=== PATIENT | male | born 1940 | race Caucasian/White ===

== ENCOUNTER 2016-11-23 18:33 | Emergency (ER) | payer MEDICARE, OTHER ==
[~2016-11-23] VITALS: Ht 177.8 cm; Wt 93.0 kg
[~2016-11-23 18:33] MED LIST: AMIO200T2 PO; ASPI-482 PO; ATORVASTATIN CA80 MG PO; CARV12.52 PO; DICL100G18 TP; DONE10TA61 PO; DOXE10CA PO; FURO40TA4 PO; INSU100V13 SQ; LISI-334 PO; MELA1TAB6 PO; MELA3TAB2 PO; MEMA10TA PO; MEMA28CA PO; OMEP20CA9 PO; POTASSIUM CHLO10 MEQ PO; PREG75CA PO; RIVA10TA PO; RIVA15TA PO; SPIR25TA3 PO
--- NOTE | 2016-11-23 19:47 | PHYS DOC ---
Past Medical History Past Medical History: Dementia, High Cholesterol, Hypertension, Other Additional Past Medical Histor: MRSA Past Surgical History: Other Additional Past Surgical Histo: BACK,SHOULDER, PM Alcohol Use: None Drug Use: None Adult General Chief Complaint Chief Complaint: BLOOD SUGAR PROBLEM HPI HPI Patient is a 76 year old male who presents with generalized weakness. According to his he has a history of dementia and is been feeling weaker over the last couple days and sleeping a lot but she states he always sleeps a lot. She states his sugar has been up in the 3:15 today. He is on Humalog and Lantus. He denies any fevers chills nausea vomiting or abdominal pain. Review of Systems Review of Systems Constitutional: Denies fever or chills [] Eyes: Denies change in visual acuity, redness, or eye pain [] HENT: Denies nasal congestion or sore throat [] Respiratory: Denies cough or shortness of breath [] Cardiovascular: No additional information not addressed in HPI [] GI: Denies abdominal pain, nausea, vomiting, bloody stools or diarrhea [] : Denies dysuria or hematuria [] Musculoskeletal: Denies back pain or joint pain [] Integument: Denies rash or skin lesions [] Neurologic: Denies headache, focal weakness or sensory changes [] Endocrine: Denies polyuria or polydipsia [] Current Medications Current Medications Current Medications Medications (Trade) Dose Ordered Sig/[facility] Start Time Stop Time Status Last Admin Dose Admin Azithromycin (Zithromax) 500 mg 1X ONCE 11/23/16 23:00 11/23/16 23:01 Potassium Chloride (Klor-Con) 40 meq 1X ONCE 11/23/16 23:00 11/23/16 23:01 Allergies Allergies Allergies Coded Allergies Type Severity Reaction Last Updated Verified Sulfa (Sulfonamide Antibiotics) Allergy Intermediate 09/22/15 Yes morphine Allergy Intermediate 09/22/15 Yes Physical Exam Physical Exam Constitutional: Well developed, well nourished, no acute distress, non-toxic appearance. [] HENT: Normocephalic, atraumatic, bilateral external ears normal, oropharynx moist, no oral exudates, nose normal. [] Eyes: PERRLA, EOMI, conjunctiva normal, no discharge. [] Neck: Normal range of motion, no tenderness, supple, no stridor. [] Cardiovascular:Heart rate regular rhythm, no murmur [] Lungs & Thorax: Bilateral breath sounds clear to auscultation [] Abdomen: Bowel sounds normal, soft, no tenderness, no masses, no pulsatile masses. [] Skin: Warm, dry, no erythema, no rash. [] Back: No tenderness, no CVA tenderness. [] Extremities: No tenderness, no cyanosis, no clubbing, ROM intact, no edema. [] Neurologic: Alert and oriented X 3, normal motor function, normal sensory function, no focal deficits noted. [] Psychologic: Affect normal, judgement normal, mood normal. [] Current Patient Data Vital Signs Vital Signs Date Time Temp Pulse Resp B/P (MAP) Pulse Ox O2 Delivery O2 Flow Rate FiO2 11/23/16 22:30 52 18 153/80 (104) 94 Room Air 11/23/16 19:45 98.0 98.0 Lab Values Laboratory Tests Test 11/23/16 20:03 11/23/16 20:11 11/23/16 20:15 11/23/16 20:30 White Blood Count 7.4 x10^3/uL (4.0-11.0) Red Blood Count 4.32 x10^6/uL (4.30-5.70) Hemoglobin 12.9 g/dL (13.0-17.5) L Hematocrit 39.6 % (39.0-53.0) Mean Corpuscular Volume 92 fL (79-100) Mean Corpuscular Hemoglobin 30 pg (25-35) Mean Corpuscular Hemoglobin Concent 33 g/dL (31-37) Red Cell Distribution Width 14.5 % (11.5-14.5) Platelet Count 116 x10^3/uL (140-400) L Neutrophils (%) (Auto) 68 % (31-73) Lymphocytes (%) (Auto) 14 % (24-48) L Monocytes (%) (Auto) 13 % (0-9) H Eosinophils (%) (Auto) 4 % (0-3) H Basophils (%) (Auto) 2 % (0-3) Neutrophils # (Auto) 5.1 x10^3uL (1.8-7.7) Lymphocytes # (Auto) 1.0 x10^3/uL (1.0-4.8) Monocytes # (Auto) 1.0 x10^3/uL (0.0-1.1) Eosinophils # (Auto) 0.3 x10^3/uL (0.0-0.7) Basophils # (Auto) 0.1 x10^3/uL (0.0-0.2) Prothrombin Time 21.4 SEC (11.7-14.0) H Prothrombin Time INR 2.0 (0.8-1.1) H PTT 42 SEC (24-38) H Sodium Level 140 mmol/L (136-145) Potassium Level 3.3 mmol/L (3.5-5.1) L Chloride Level 102 mmol/L (98-107) Carbon Dioxide Level 29 mmol/L (21-32) Anion Gap 9 (6-14) Blood Urea Nitrogen 62 mg/dL (8-26) H Creatinine 2.3 mg/dL (0.7-1.3) H Estimated GFR (Cockcroft-Gault) 27.6 Glucose Level 212 mg/dL (70-99) H Calcium Level 9.1 mg/dL (8.5-10.1) Total Bilirubin 0.3 mg/dL (0.2-1.0) Direct Bilirubin 0.1 mg/dL (0.0-0.2) Aspartate Amino Transferase (AST) 69 U/L (15-37) H Alanine Aminotransferase (ALT) 104 U/L (16-63) H Alkaline Phosphatase 101 U/L (46-116) Ammonia 22 mcmol/L (11-34) Total Protein 7.2 g/dL (6.4-8.2) Albumin 3.4 g/dL (3.4-5.0) Influenza Type A Antigen Negative (NEGATIVE) Influenza Type B Antigen Negative (NEGATIVE) Lactic Acid Level 1.7 mmol/L (0.4-2.0) Urine Collection Type Unknown Urine Color Yellow Urine Clarity Cloudy Urine pH 5.5 Urine Specific [place] 1.020 Urine Protein Negative mg/dL (NEG-TRACE) Urine Glucose (UA) Negative mg/dL (NEG) Urine Ketones (Stick) Negative mg/dL (NEG) Urine Blood Negative (NEG) Urine Nitrite Negative (NEG) Urine Bilirubin Negative (NEG) Urine Urobilinogen Dipstick 0.2 mg/dL (0.2 mg/dL) Urine Leukocyte Esterase Trace (NEG) Urine RBC 0 /HPF (0-2) Urine WBC 0 /HPF (0-4) Urine Bacteria 0 /HPF (0-FEW) Urine Hyaline Casts Moderate /HPF Urine Mucus Slight /LPF Laboratory Tests 11/23/16 20:03 Laboratory Tests 11/23/16 20:03 EKG EKG EKG shows junctional rhythm rate of 55 beats per minute without any ST elevations or T-wave inversions, left axis deviation noted, QTC 470 ms, as interpreted by me. Radiology/Procedures Radiology/Procedures 1 View chest x-ray shows decreased sharpness of the left heart border, no pneumothorax, no bony abnormalities, ICD in place, as interpreted by me. Impressions: Weakness Hypokalemia Bronchitis Course & Med Decision Making Course & Med Decision Making Pertinent Labs and Imaging studies reviewed. (See chart for details) His chest x-ray does show some loss of the left cardiac border, his states he's been more sleepy than normal. We'll treat for bronchitis with doxycycline for the next 10 days. Return precautions given. He is agreeable to be discharged in stable condition at this time. Dragon Disclaimer Dragon Disclaimer This electronic medical record was generated, in whole or in part, using a voice recognition dictation system. Departure Departure Impression: Primary Impression: Hyperglycemia Disposition: 01 HOME, SELF-CARE Condition: STABLE Referrals: OTTONIEL STEARNS MD (PCP) Patient Instructions: Hyperglycemia, [id number] Additional Instructions: His chest x-ray shows an atypical type of infection in his lungs. He will need to take antibiotics for the next 10 days. The rest of his labs do not show any acute abnormalities. He should follow up with primary care physician. Return to ER if he has severe weakness, Scripts Doxycycline Monohydrate (DOXYCYCLINE MONOHYDRATE) 100 Mg Capsule 1 CAP PO BID, #20 CAP Prov: JINNY BROCK MD 11/23/16 JINNY BROCK MD Nov 23, 2016 19:47
[2016-11-23 20:12] LABS: BASO # 0.1 x10^3/uL (0.0-0.2); BASO % 2 % (0-3); EOS % 4 % (0-3); HEMATOCRIT 39.6 % (39.0-53.0); HEMOGLOBIN 12.9 g/dL (13.0-17.5); LYMPH % 14 % (24-48); MEAN CORPUSCULAR HEMOGLOBIN 30 pg (25-35); MEAN CORPUSCULAR HGB CONC 33 g/dL (31-37); MEAN CORPUSCULAR VOLUME 92 fL (79-100); MONO % 13 % (0-9); NEUT % 68 % (31-73); PLATELET COUNT 116 x10^3/uL (140-400); RED BLOOD COUNT 4.32 x10^6/uL (4.30-5.70); RED CELL DISTRIBUTION WIDTH 14.5 % (11.5-14.5); WHITE BLOOD COUNT 7.4 x10^3/uL (4.0-11.0)
[2016-11-23 20:22] LABS: PROTHROMBIN TIME PATIENT 21.4 SEC (11.7-14.0)
[2016-11-23 20:24] LABS: CALCIUM 9.1 mg/dL (8.5-10.1); CREATININE 2.3 mg/dL (0.7-1.3); GFR 27.6; POTASSIUM 3.3 mmol/L (3.5-5.1)
[2016-11-23 20:30] LABS: ALBUMIN 3.4 g/dL (3.4-5.0); DIRECT BILIRUBIN 0.1 mg/dL (0.0-0.2); TOTAL BILIRUBIN 0.3 mg/dL (0.2-1.0); TOTAL PROTEIN 7.2 g/dL (6.4-8.2)
[2016-11-23 20:47] LABS: BILIRUBIN,URINE NEGATIVE (NEG); GLUCOSE,URINE NEGATIVE (NEG); NITRITE,URINE NEGATIVE (NEG); PH,URINE 5.5; PROTEIN,URINE NEGATIVE (NEG-TRACE); UROBILINOGEN,URINE 0.2 mg/dL (0.2 mg/dL)
[2016-11-23 21:03] LABS: OBC FLU VALID
[2016-11-23 21:06] LABS: BACTERIA,URINE 0 /HPF (0-FEW); RBC,URINE 0 /HPF (0-2); WBC,URINE 0 /HPF (0-4)
[2016-11-23 22:30] VITALS: BP 153/80
[2016-11-23] MEDS ORDERED: AZIT1PAC9 PO (22:51)
[2016-11-23] MEDS ORDERED: AZITHROMYCIN 250 MG TABLET. PO ONE (23:00)
[2016-11-23] MEDS ORDERED: DOXYCYCLINE HYCLATE 100 MG TABLET PO ONE (23:00)
[2016-11-23] MEDS ORDERED: POTASSIUM CHLORIDE 20 MEQ TABLET.ER. PO ONE (23:00)
[2016-11-23] MEDS ORDERED: DOXY100C14 PO (23:01)
--- NOTE | 2016-11-24 08:21 | RAD ---
Portable chest, 11/23/2016: History: Weakness Comparison is made to a study from 08/19/2015. There has been a previous median sternotomy. A left-sided transvenous pacemaker remains in place with 2 leads extending into the right heart. The depth of inspiration is suboptimal. The heart size and pulmonary vascularity appear to be within normal limits. No pulmonary infiltrate is seen. There is no evidence of pleural fluid. IMPRESSION: 1. Suboptimal inspiration. 2. No acute abnormality is detected.
--- NOTE | 2016-11-24 11:48 | EKG ---
[facility] [address] [place] [address] Test Date: 2016-11-23 Test Time: 20:26:00 Pat Name: JOHN ROBERTS Department: Room: Gender: M [employer]ch [employer]ter: : 1940 Requested By: JINNY BROCK Order Number: [id number] Reading MD: Santana An Measurements Intervals [place] Rate: 55 P: [place]: QRS: -48 QRSD: 136 T: 3 QT: 492 QTc: 473 Interpretive Statements A V PACED Electronically Signed On 12-13-2016 17:02:28 CDT by Santana An
[2017-02-15] MEDS ORDERED: CALC300T5 PO (09:51)
[2017-02-15] MEDS ORDERED: SENN8.6T99 PO (09:51)
[2017-02-15] MEDS ORDERED: INSU100I17 SQ (09:51)
[2017-02-15] MEDS ORDERED: MENT118G TP (09:51)
[2017-02-15] MEDS ORDERED: TAMS0.4C2 PO (09:51)
[2017-02-15] MEDS ORDERED: HYDR-971 PO ×2 (09:51)
[2017-02-15] MEDS ORDERED: ACET325T9 PO (09:51)
[2017-02-15] MEDS ORDERED: DEXT15DR5 EACHEYE (09:51)
[2017-02-15] MEDS ORDERED: POTASSIUM CHLO10 MEQ PO (16:10)
[2017-02-15] MEDS ORDERED: MEMA10TA PO (16:10)
== END 2016-11-23 23:22 | disposition home or self-care (01) ==
LOC: ER 18:33
DX: R73.9 Hyperglycemia, unspecified (principal); R53.1 Weakness; J40 Bronchitis, not specified as acute or chronic; E78.00 Pure hypercholesterolemia, unspecified; F03.90 Unspecified dementia, unspecified severity, without behavioral disturbance, psychotic disturbance, mood disturbance, and anxiety; I10 Essential (primary) hypertension; E87.6 Hypokalemia; Z86.14 Personal history of Methicillin resistant Staphylococcus aureus infection; Z88.2 Allergy status to sulfonamides; Z88.5 Allergy status to narcotic agent
CPT/HCPCS: 36415; 71010; 80048; 80076; 81001; 82140; 83605; 85025; 85610; 85730; 87040; 87086; 87804; 93005; 99285-25

== ENCOUNTER 2017-01-19 21:54 | Inpatient (IN) | payer MEDICARE, OTHER ==
[~2017-01-19] VITALS: Ht 179.1 cm; Wt 107.5 kg
[~2017-01-19 21:54] MED LIST changes: +AZIT1PAC9 PO; +DOXY100C14 PO
[2017-01-19 22:37] LABS: BILIRUBIN,URINE NEGATIVE (NEG); GLUCOSE,URINE NEGATIVE (NEG); NITRITE,URINE NEGATIVE (NEG); PH,URINE 5.5; PROTEIN,URINE NEGATIVE (NEG-TRACE); UROBILINOGEN,URINE 0.2 mg/dL (0.2 mg/dL)
[2017-01-19 22:37] LABS: BASO % 0 % (0-3); EOS % 3 % (0-3); HEMATOCRIT 39.1 % (39.0-53.0); LYMPH % 9 % (24-48); MEAN CORPUSCULAR HEMOGLOBIN 30 pg (25-35); MEAN CORPUSCULAR HGB CONC 33 g/dL (31-37); MEAN CORPUSCULAR VOLUME 90 fL (79-100); MONO % 15 % (0-9); NEUT % 73 % (31-73); PLATELET COUNT 164 x10^3/uL (140-400); RED BLOOD COUNT 4.36 x10^6/uL (4.30-5.70); RED CELL DISTRIBUTION WIDTH 14.6 % (11.5-14.5); WHITE BLOOD COUNT 11.5 x10^3/uL (4.0-11.0)
[2017-01-19 22:44] LABS: BACTERIA,URINE 0 /HPF (0-FEW); RBC,URINE 0 /HPF (0-2); WBC,URINE OCC /HPF (0-4)
[2017-01-19 22:49] LABS: CALCIUM 9.1 mg/dL (8.5-10.1); CREATININE 2.9 mg/dL (0.7-1.3); GFR 21.2; POTASSIUM 4.3 mmol/L (3.5-5.1)
[2017-01-19 22:54] LABS: ALBUMIN 3.2 g/dL (3.4-5.0); ALBUMIN/GLOBULIN RATIO 0.8 (1.0-1.7); MAGNESIUM 2.4 mg/dL (1.8-2.4); TOTAL BILIRUBIN 0.4 mg/dL (0.2-1.0); TOTAL PROTEIN 7.2 g/dL (6.4-8.2)
--- NOTE | 2017-01-19 22:54 | PHYS DOC ---
Past Medical History Past Medical History: CAD, Dementia, Diabetes-Type II, GERD, High Cholesterol, Hypertension, Other Additional Past Medical Histor: MRSA Past Surgical History: Coronary Bypass Surgery, Pacemaker, Other Additional Past Surgical Histo: BACK; SHOULDER Alcohol Use: None Drug Use: None Adult General Chief Complaint Chief Complaint: WEAKNESS/GENERALIZED HPI HPI Patient is a 76 year old male brought from home by EMS with the complaint of weakness. History is primarily from the patient's . Patient has become calm increasingly weaker. He usually is up and around unassisted with a walker. He fell on 01/08 and hurt his "tailbone" which is still hurting him. He's been having more trouble getting around. This evening he had a "cold sweat" and was too shaky and weak to stand up and so accidentally urinated on himself. His called EMS. Patient has been eating pretty well. He still has a good appetite. He has not had a fall today. He denies shortness of air or cough, denies chest pain. He denies fever and chills but he did have a cold sweat. Patient has not been on antibiotics anytime lately. He has been taking his medications as prescribed. PCP Dr. Ottoniel Nichols Review of Systems Review of Systems Constitutional: Denies fever or chills [] HENT: Denies nasal congestion or sore throat [] Respiratory: Denies cough or shortness of breath [] Cardiovascular: Denies chest pain GI: Denies nausea or vomiting : Denies dysuria or hematuria [] Musculoskeletal: Tailbone pain after a fall Integument: Denies rash or skin lesions [] Neurologic: Denies headache, focal weakness or sensory changes [] Current Medications Current Medications Current Medications Medications (Trade) Dose Ordered Sig/[facility] Start Time Stop Time Status Last Admin Dose Admin Dextrose 500 ml @ 150 mls/hr 1X ONCE 01/19/17 23:15 01/20/17 02:34 01/19/17 23:15 150 MLS/HR Allergies Allergies Allergies Coded Allergies Type Severity Reaction Last Updated Verified Sulfa (Sulfonamide Antibiotics) Allergy Intermediate 09/22/15 Yes morphine Allergy Intermediate 09/22/15 Yes Physical Exam Physical Exam Constitutional: Well developed, well nourished, no acute distress, non-toxic appearance. Alert, appears to be mentating at his baseline, warm and dry. HENT: Normocephalic, atraumatic, bilateral external ears normal, nose normal. [] Eyes: conjunctiva normal, no discharge. [] Neck: Normal range of motion, no stridor. [] Cardiovascular:Heart rate regular rhythm, no murmur [] Lungs & Thorax: Bilateral breath sounds clear to auscultation [] Abdomen: Bowel sounds normal, soft, no tenderness, no masses, no pulsatile masses. [] Skin: Warm, dry, no erythema, no rash. [] Extremities: No tenderness, no cyanosis, no clubbing, ROM intact, no edema. [] Neurologic: Alert and oriented X 3, normal motor function, no focal deficits noted. [] Current Patient Data Vital Signs Vital Signs Date Time Temp Pulse Resp B/P (MAP) Pulse Ox O2 Delivery O2 Flow Rate FiO2 01/19/17 22:00 97.5 60 18 151/72 (98) 95 Nasal Cannula 2.0 97.5 Lab Values Laboratory Tests Test 01/19/17 22:10 01/19/17 22:15 White Blood Count 11.5 x10^3/uL (4.0-11.0) H Red Blood Count 4.36 x10^6/uL (4.30-5.70) Hemoglobin 13.0 g/dL (13.0-17.5) Hematocrit 39.1 % (39.0-53.0) Mean Corpuscular Volume 90 fL (79-100) Mean Corpuscular Hemoglobin 30 pg (25-35) Mean Corpuscular Hemoglobin Concent 33 g/dL (31-37) Red Cell Distribution Width 14.6 % (11.5-14.5) H Platelet Count 164 x10^3/uL (140-400) Neutrophils (%) (Auto) 73 % (31-73) Lymphocytes (%) (Auto) 9 % (24-48) L Monocytes (%) (Auto) 15 % (0-9) H Eosinophils (%) (Auto) 3 % (0-3) Basophils (%) (Auto) 0 % (0-3) Neutrophils # (Auto) 8.4 x10^3uL (1.8-7.7) H Lymphocytes # (Auto) 1.0 x10^3/uL (1.0-4.8) Monocytes # (Auto) 1.7 x10^3/uL (0.0-1.1) H Eosinophils # (Auto) 0.3 x10^3/uL (0.0-0.7) Basophils # (Auto) 0.0 x10^3/uL (0.0-0.2) Sodium Level 137 mmol/L (136-145) Potassium Level 4.3 mmol/L (3.5-5.1) Chloride Level 98 mmol/L (98-107) Carbon Dioxide Level 26 mmol/L (21-32) Anion Gap 13 (6-14) Blood Urea Nitrogen 105 mg/dL (8-26) H Creatinine 2.9 mg/dL (0.7-1.3) H Estimated GFR (Cockcroft-Gault) 21.2 BUN/Creatinine Ratio 36 (6-20) H Glucose Level 50 mg/dL (70-99) L Calcium Level 9.1 mg/dL (8.5-10.1) Magnesium Level 2.4 mg/dL (1.8-2.4) Total Bilirubin 0.4 mg/dL (0.2-1.0) Aspartate Amino Transferase (AST) 325 U/L (15-37) H Alanine Aminotransferase (ALT) 448 U/L (16-63) H Alkaline Phosphatase 104 U/L (46-116) Creatine Kinase 329 U/L (39-308) H Creatine Kinase MB (Mass) 4.1 ng/mL (0.0-3.6) H Creatine Kinase MB Relative Index 1.2 % (0-4) Troponin I Quantitative 0.020 ng/mL (0.000-0.055) OP-Dfn-U-Type Natriuretic Peptide 3695 pg/mL (0-449) H Total Protein 7.2 g/dL (6.4-8.2) Albumin 3.2 g/dL (3.4-5.0) L Albumin/Globulin Ratio 0.8 (1.0-1.7) L Urine Collection Type Void Urine Color Yellow Urine Clarity Clear Urine pH 5.5 Urine Specific [place] 1.015 Urine Protein Negative mg/dL (NEG-TRACE) Urine Glucose (UA) Negative mg/dL (NEG) Urine Ketones (Stick) Negative mg/dL (NEG) Urine Blood Negative (NEG) Urine Nitrite Negative (NEG) Urine Bilirubin Negative (NEG) Urine Urobilinogen Dipstick 0.2 mg/dL (0.2 mg/dL) Urine Leukocyte Esterase Negative (NEG) Urine RBC 0 /HPF (0-2) Urine WBC Occ /HPF (0-4) Urine Squamous Epithelial Cells None /LPF Urine Bacteria 0 /HPF (0-FEW) Urine Hyaline Casts Few /HPF Urine Mucus Slight /LPF Laboratory Tests 01/19/17 22:10 Laboratory Tests 01/19/17 22:10 EKG EKG Fully paced. Heart rate 60. Widened QRS with repolarization abnormalities consistent with paced rhythm. No STEMI pattern. 2158[] Radiology/Procedures Radiology/Procedures One view portable chest x-ray read by me. No acute findings.[] Course & Med Decision Making Course & Med Decision Making Pertinent Labs and Imaging studies reviewed. (See chart for details) 76-year-old male who lives at home with his , is usually able to get around with a walker, has become increasingly weak, shaky, and unable to ambulate or even stand up today. We will check some labs, chest x-ray, urinalysis, see if we can find a source for his recent worsening. Patient and family are agreeable to that plan. EMS had reported a prehospital Accu-Chek of 75. Here, our blood work showed a glucose of 50. Rechecked the patient, he is still alert. He was able to drink a cup of apple juice and a cup of orange juice. We hung some D10. Talked to the patient and his about insulin. He usually takes Levemir every night at bedtime. He has not yet taken today's dose of Levemir. Last time that was dosed with last night. He does take Humalog 10 units with meals plus a sliding scale. At 5:30 tonight his glucose was 232, he took 14 units according to his sliding scale. He did eat dinner at that time. It's unclear why his sugar dipped so low , could be related to his worsening renal function or perhaps he may have had the incorrect dose although there is no history to suggest that. Labs also significant for creatinine 2.9, his previous creatinine was 2.3. I did not identify a source of infection. It sounds like his cold sweat and shakiness might of been due to hypoglycemia. I discussed the case with Dr. Foley, taking calls for Dr. Nichols. She will admit the patient. I wrote bridge orders. [] Dragon Disclaimer Dragon Disclaimer This electronic medical record was generated, in whole or in part, using a voice recognition dictation system. Departure Departure Impression: Primary Impression: Hypoglycemia Additional Impressions: Generalized weakness Acute on chronic renal insufficiency Disposition: ADMITTED INPATIENT Admitting Physician: Ottoniel Lucero Condition: STABLE Referrals: OTTONIEL NICHOLS MD (PCP) Problem Qualifiers JC VALLES MD Jan 19, 2017 22:54
[2017-01-19 23:02] LABS: CKMB MASS 4.1 ng/mL (0.0-3.6)
[2017-01-19] MEDS ORDERED: IV DEXTROSE 10% 500 ML IV ONE (23:15)
[2017-01-20] VITALS (7 sets, daily range): BP systolic 103–144; BP diastolic 56–82
[2017-01-20] MEDS ORDERED: AMIO200T2 PO (03:43)
[2017-01-20] MEDS ORDERED: QUET50TA5 PO (03:58)
[2017-01-20] MEDS ORDERED: FURO40TA4 PO (03:58)
[2017-01-20] MEDS ORDERED: ASCO500T2 PO (03:58)
[2017-01-20] MEDS ORDERED: VITA400C36 PO (03:58)
[2017-01-20] MEDS ORDERED: CHOL10003 PO (03:58)
[2017-01-20] MEDS ORDERED: INSU100V13 SQ (03:58)
[2017-01-20] MEDS ORDERED: DICL100G18 TP (03:58)
[2017-01-20] MEDS ORDERED: DOCU-109 PO (03:58)
[2017-01-20] MEDS ORDERED: HYDR12.53 PO (03:58)
[2017-01-20] MEDS ORDERED: LISI-334 PO (03:58)
[2017-01-20] MEDS ORDERED: humalog (03:58)
[2017-01-20] MEDS ORDERED: CETI10TA22 PO (03:58)
[2017-01-20] MEDS ORDERED: FERR-26 PO (03:58)
--- NOTE | 2017-01-20 08:15 | RAD ---
PORTABLE CHEST 1V Clinical Indication: WEAKNESS Comparison: November 23, 2016 Technique: Portable upright AP view of the chest is obtained. Findings: No focal consolidation is seen. Mild interstitial opacities are present within the perihilar regions. No pleural effusion or pneumothorax is seen. Mild cardiomegaly appears stable. Median sternotomy wires redemonstrated. Left-sided chest pacemaker appears stable in position. Visualized osseous structures and overlying soft tissues demonstrate no acute interval change. IMPRESSION: Mild perihilar interstitial opacities, may be secondary to poor inspiratory effort versus mild edema.
[2017-01-20] MEDS: IV NORMAL SALINE 1000ML BAG 1,000 ML IV SCH ×2 (11:15→21:22)
[2017-01-20] MEDS ORDERED: POTASSIUM CHLO10 MEQ PO (11:43)
[2017-01-20] MEDS ORDERED: DEXTROSE 50% 25 GM / 50ML DISP.SYRIN. IV PRN (11:45)
--- NOTE | 2017-01-20 11:52 | PDOC ---
PROGRESS NOTES Subjective Subjective Patient without complaint, denies pain. Objective Objective Vital Signs Date Time Temp Pulse Resp B/P (MAP) Pulse Ox O2 Delivery O2 Flow Rate FiO2 01/20/17 11:25 98.1 78 16 115/60 (78) 100 Room Air 98.1 01/20/17 08:00 2.0 Intake and Output 01/20/17 07:00 Intake Total 200 ml Output Total 1200 ml Balance -1000 ml Intake Oral 200 ml Output Urine Total 1200 ml Physical Exam Abdomen: Normal bowel sounds, Soft, No tenderness Heart: Regular rate Extremities: No edema General: Alert (oriented to person and place), No acute distress Lungs: Clear to auscultation Assessment Assessment Problems Medical Problems: (1) Acute on chronic renal insufficiency Status: Acute (2) Generalized weakness Status: Acute (3) Hypoglycemia Status: Acute Plan Plan of Care 1. Acute renal failure with CKD III - lab significantly worsened from baseline at admission. IVF ordered, will consult Nephrology. No lab from this AM yet, ordered. Elevated CK also, patient not sure if he fell recently but was apparently feeling weak and unable to get out of his recliner at home yesterday. 2. hypoglycemia with DM2 - patient on insulins at home. Glucose was 50 at admission. Will resume insulins at a lower dose than previously and follow [facility] here. 3. Hx CHF, CAD and Cardiomyopathy - patient has seen Dr Gaming for these conditions but may not have been seen in the past year per his office chart. Diuretics on hold due to renal failure, continuing his other cardiac meds. Consult with Dr Gaming pending. Troponin slightly elevated, patient denies symptoms. 4. Elevated LFT's - not seen on previous lab in our office. Patient denies abdominal pain. Repeat lab ordered for today, consider CT abdomen (no IV contrast) if elevation persists. 5. HTN - Lisinopril on hold, continue other home meds and adjust as indicated. 6. dementia - continue home meds and supportive care. 7. debility - therapies ordered for evaluation. Comment Review of Relevant I have reviewed the following items kiana (where applicable) has been applied. Labs Laboratory Tests Test 01/19/17 22:10 01/19/17 22:15 01/19/17 23:41 01/20/17 00:17 White Blood Count 11.5 x10^3/uL (4.0-11.0) Red Blood Count 4.36 x10^6/uL (4.30-5.70) Hemoglobin 13.0 g/dL (13.0-17.5) Hematocrit 39.1 % (39.0-53.0) Mean Corpuscular Volume 90 fL (79-100) Mean Corpuscular Hemoglobin 30 pg (25-35) Mean Corpuscular Hemoglobin Concent 33 g/dL (31-37) Red Cell Distribution Width 14.6 % (11.5-14.5) Platelet Count 164 x10^3/uL (140-400) Neutrophils (%) (Auto) 73 % (31-73) Lymphocytes (%) (Auto) 9 % (24-48) Monocytes (%) (Auto) 15 % (0-9) Eosinophils (%) (Auto) 3 % (0-3) Basophils (%) (Auto) 0 % (0-3) Neutrophils # (Auto) 8.4 x10^3uL (1.8-7.7) Lymphocytes # (Auto) 1.0 x10^3/uL (1.0-4.8) Monocytes # (Auto) 1.7 x10^3/uL (0.0-1.1) Eosinophils # (Auto) 0.3 x10^3/uL (0.0-0.7) Basophils # (Auto) 0.0 x10^3/uL (0.0-0.2) Sodium Level 137 mmol/L (136-145) Potassium Level 4.3 mmol/L (3.5-5.1) Chloride Level 98 mmol/L (98-107) Carbon Dioxide Level 26 mmol/L (21-32) Anion Gap 13 (6-14) Blood Urea Nitrogen 105 mg/dL (8-26) Creatinine 2.9 mg/dL (0.7-1.3) Estimated GFR (Cockcroft-Gault) 21.2 BUN/Creatinine Ratio 36 (6-20) Glucose Level 50 mg/dL (70-99) Calcium Level 9.1 mg/dL (8.5-10.1) Magnesium Level 2.4 mg/dL (1.8-2.4) Total Bilirubin 0.4 mg/dL (0.2-1.0) Aspartate Amino Transf (AST/SGOT) 325 U/L (15-37) Alanine Aminotransferase (ALT/SGPT) 448 U/L (16-63) Alkaline Phosphatase 104 U/L (46-116) Creatine Kinase 329 U/L (39-308) Creatine Kinase MB (Mass) 4.1 ng/mL (0.0-3.6) Creatine Kinase MB Relative Index 1.2 % (0-4) Troponin I Quantitative 0.020 ng/mL (0.000-0.055) LU-Asz-E-Type Natriuretic Peptide 3695 pg/mL (0-449) Total Protein 7.2 g/dL (6.4-8.2) Albumin 3.2 g/dL (3.4-5.0) Albumin/Globulin Ratio 0.8 (1.0-1.7) Urine Collection Type Void Urine Color Yellow Urine Clarity Clear Urine pH 5.5 Urine Specific Newell 1.015 Urine Protein Negative mg/dL (NEG-TRACE) Urine Glucose (UA) Negative mg/dL (NEG) Urine Ketones (Stick) Negative mg/dL (NEG) Urine Blood Negative (NEG) Urine Nitrite Negative (NEG) Urine Bilirubin Negative (NEG) Urine Urobilinogen Dipstick 0.2 mg/dL (0.2 mg/dL) Urine Leukocyte Esterase Negative (NEG) Urine RBC 0 /HPF (0-2) Urine WBC Occ /HPF (0-4) Urine Squamous Epithelial Cells None /LPF Urine Bacteria 0 /HPF (0-FEW) Urine Hyaline Casts Few /HPF Urine Mucus Slight /LPF Glucose (Fingerstick) 123 mg/dL (70-99) 151 mg/dL (70-99) Test 01/20/17 03:46 01/20/17 07:30 Glucose (Fingerstick) 225 mg/dL (70-99) 157 mg/dL (70-99) Laboratory Tests Test 01/19/17 22:10 01/19/17 22:15 01/19/17 23:41 01/20/17 00:17 White Blood Count 11.5 x10^3/uL (4.0-11.0) Red Blood Count 4.36 x10^6/uL (4.30-5.70) Hemoglobin 13.0 g/dL (13.0-17.5) Hematocrit 39.1 % (39.0-53.0) Mean Corpuscular Volume 90 fL (79-100) Mean Corpuscular Hemoglobin 30 pg (25-35) Mean Corpuscular Hemoglobin Concent 33 g/dL (31-37) Red Cell Distribution Width 14.6 % (11.5-14.5) Platelet Count 164 x10^3/uL (140-400) Neutrophils (%) (Auto) 73 % (31-73) Lymphocytes (%) (Auto) 9 % (24-48) Monocytes (%) (Auto) 15 % (0-9) Eosinophils (%) (Auto) 3 % (0-3) Basophils (%) (Auto) 0 % (0-3) Neutrophils # (Auto) 8.4 x10^3uL (1.8-7.7) Lymphocytes # (Auto) 1.0 x10^3/uL (1.0-4.8) Monocytes # (Auto) 1.7 x10^3/uL (0.0-1.1) Eosinophils # (Auto) 0.3 x10^3/uL (0.0-0.7) Basophils # (Auto) 0.0 x10^3/uL (0.0-0.2) Sodium Level 137 mmol/L (136-145) Potassium Level 4.3 mmol/L (3.5-5.1) Chloride Level 98 mmol/L (98-107) Carbon Dioxide Level 26 mmol/L (21-32) Anion Gap 13 (6-14) Blood Urea Nitrogen 105 mg/dL (8-26) Creatinine 2.9 mg/dL (0.7-1.3) Estimated GFR (Cockcroft-Gault) 21.2 BUN/Creatinine Ratio 36 (6-20) Glucose Level 50 mg/dL (70-99) Calcium Level 9.1 mg/dL (8.5-10.1) Magnesium Level 2.4 mg/dL (1.8-2.4) Total Bilirubin 0.4 mg/dL (0.2-1.0) Aspartate Amino Transf (AST/SGOT) 325 U/L (15-37) Alanine Aminotransferase (ALT/SGPT) 448 U/L (16-63) Alkaline Phosphatase 104 U/L (46-116) Creatine Kinase 329 U/L (39-308) Creatine Kinase MB (Mass) 4.1 ng/mL (0.0-3.6) Creatine Kinase MB Relative Index 1.2 % (0-4) Troponin I Quantitative 0.020 ng/mL (0.000-0.055) MK-Wdv-X-Type Natriuretic Peptide 3695 pg/mL (0-449) Total Protein 7.2 g/dL (6.4-8.2) Albumin 3.2 g/dL (3.4-5.0) Albumin/Globulin Ratio 0.8 (1.0-1.7) Urine Collection Type Void Urine Color Yellow Urine Clarity Clear Urine pH 5.5 Urine Specific Newell 1.015 Urine Protein Negative mg/dL (NEG-TRACE) Urine Glucose (UA) Negative mg/dL (NEG) Urine Ketones (Stick) Negative mg/dL (NEG) Urine Blood Negative (NEG) Urine Nitrite Negative (NEG) Urine Bilirubin Negative (NEG) Urine Urobilinogen Dipstick 0.2 mg/dL (0.2 mg/dL) Urine Leukocyte Esterase Negative (NEG) Urine RBC 0 /HPF (0-2) Urine WBC Occ /HPF (0-4) Urine Squamous Epithelial Cells None /LPF Urine Bacteria 0 /HPF (0-FEW) Urine Hyaline Casts Few /HPF Urine Mucus Slight /LPF Glucose (Fingerstick) 123 mg/dL (70-99) 151 mg/dL (70-99) Test 01/20/17 03:46 01/20/17 07:30 Glucose (Fingerstick) 225 mg/dL (70-99) 157 mg/dL (70-99) Medications Current Medications Dextrose 500 ml @ 150 mls/hr 1X ONCE IV Last administered on 01/19/17t 23:15 ; Start 01/19/17 at 23:15; Stop 01/20/17 at 02:34; Status DC Sodium Chloride 1,000 ml @ 100 mls/hr Q10H IV ; Start 01/20/17 at 11:15 Amiodarone HCl (Cordarone) 200 mg BID PO ; Start 01/20/17 at 21:00; Status UNV Ascorbic Acid (Vitamin C) 500 mg DAILY PO ; Start 01/21/17 at 09:00; Status UNV Aspirin (Ecotrin) 81 mg DAILY PO ; Start 01/21/17 at 09:00; Status UNV Carvedilol (Coreg) 12.5 mg BID PO ; Start 01/20/17 at 21:00; Status UNV Cetirizine HCl (ZyrTEC) 10 mg DAILY PO ; Start 01/21/17 at 09:00; Status UNV Vitamin D (Vitamin D3) 2,000 unit DAILY PO ; Start 01/21/17 at 09:00; Status UNV Docusate Sodium (Colace) 250 mg DAILY PO ; Start 01/21/17 at 09:00; Status UNV Donepezil HCl (Aricept) 10 mg QHS PO ; Start 01/20/17 at 21:00; Status UNV Ferrous Sulfate (Feosol) 325 mg DAILY PO ; Start 01/21/17 at 09:00; Status UNV Pregabalin (Lyrica) 75 mg BID PO ; Start 01/20/17 at 21:00; Status UNV Rivaroxaban (Xarelto) 15 mg DAILY PO ; Start 01/21/17 at 09:00; Status UNV Non-Formulary Medication 1 tab DAILY PO ; Start 01/21/17 at 09:00; Status UNV Non-Formulary Medication 28 mg HS PO ; Start 01/20/17 at 21:00; Status UNV Non-Formulary Medication 1 cap DAILY PO ; Start 01/21/17 at 09:00; Status UNV Non-Formulary Medication 1 tab QHS PO ; Start 01/20/17 at 21:00; Status UNV Insulin Detemir (Levemir) 30 units QHS SQ ; Start 01/20/17 at 21:00; Status UNV Active Scripts Active Potassium Chloride 10 Meq Capsule.er 10 Meq PO BID 30 Days Reported Ferrous Sulfate 325 Mg Tablet 1 Tab PO DAILY [humalog] Levemir (Insulin Detemir) 100 Unit/1 Ml Vial 45 Unit SQ Voltaren (Diclofenac Sodium) 100 Gm Gel..gram. 1 Gm TP BID Zyrtec (Cetirizine Hcl) 10 Mg Tablet 1 Tab PO DAILY Vitamin E (Vitamin E Mixed) 400 Unit Capsule 400 Unit PO DAILY Vitamin D3 (Cholecalciferol (Vitamin D3)) 1,000 Unit Tablet 2 Tab PO DAILY Vitamin C (Ascorbic Acid) 500 Mg Tablet 500 Mg PO DAILY Colace (Docusate Sodium) 100 Mg Capsule 250 Mg PO DAILY Seroquel (Quetiapine Fumarate) 50 Mg Tablet 1 Tab PO QHS Lisinopril 20 Mg Tablet 1 Tab PO BID Hydrochlorothiazide Capsule (Hydrochlorothiazide) 12.5 Mg Capsule 12.5 Mg PO DAILY Furosemide 40 Mg Tablet 40 Mg PO BID Amiodarone Hcl 200 Mg Tablet 1 Tab PO BID Spironolactone 25 Mg Tablet 12.5 Mg PO DAILY Xarelto (Rivaroxaban) 15 Mg Tablet 15 Mg PO DAILY Namenda Xr (Memantine Hcl) 28 Mg Cap.spr.24 28 Mg PO HS Melatonin 10 Mg Tablet (Melatonin/Pyridoxine Hcl (B6)) 1 Each Tab.mphase 1 Each PO Aspir 81 (Aspirin) 81 Mg Tablet.dr 1 Tab PO DAILY Omeprazole 20 Mg Capsule.dr 1 Cap PO DAILY Lyrica (Pregabalin) 75 Mg Capsule 1 Cap PO BID Aricept (Donepezil Hcl) 10 Mg Tablet 1 Tab PO QHS Carvedilol 12.5 Mg Tablet 1 Tab PO BID Atorvastatin Calcium 80 Mg Tablet 1 Tab PO DAILY Vitals/I & O Vital Sign - Last 24 Hours 01/19/17 01/19/17 01/19/17 01/19/17 22:00 22:33 23:03 23:33 Temp 97.5 97.5 Pulse 60 58 57 58 Resp 18 20 18 20 B/P (MAP) 151/72 (98) 145/71 (95) 156/86 (109) 164/86 (112) Pulse Ox 95 98 97 97 O2 Delivery Nasal Cannula Nasal Cannula Nasal Cannula Nasal Cannula O2 Flow Rate 2.0 2.0 2.0 2.0 01/20/17 01/20/17 01/20/17 01/20/17 01:30 02:06 03:54 07:00 Temp 98.2 97.6 98.0 98.2 97.6 98.0 Pulse 59 61 83 Resp 18 17 17 B/P (MAP) 144/78 (100) 116/61 (79) 110/67 (81) Pulse Ox 94 100 96 O2 Delivery Nasal Cannula Room Air Room Air Room Air O2 Flow Rate 2.0 01/20/17 01/20/17 08:00 11:25 Temp 98.1 98.1 Pulse 78 Resp 16 B/P (MAP) 115/60 (78) Pulse Ox 100 O2 Delivery Nasal Cannula Room Air O2 Flow Rate 2.0 Intake and Output 01/19/17 01/19/17 01/20/17 15:00 23:00 07:00 Intake Total 200 ml Output Total 1200 ml Balance -1000 ml BLANQUITA MARTÍNEZ MD Jan 20, 2017 11:52
[2017-01-20] MEDS ORDERED: AMIODARONE HCL 200 MG TABLET. PO SCH (12:00)
[2017-01-20] MEDS: CHOLECALCIFEROL (VITAMIN D3) 1,000 UNIT TABLET PO SCH (12:11)
[2017-01-20] MEDS: FERROUS SULFATE 325 MG TABLET. PO SCH (12:11)
[2017-01-20] MEDS: MEMANTINE 10 MG TABLET. PO SCH ×2 (12:11→21:13)
[2017-01-20] MEDS: CETIRIZINE HCL 10 MG TABLET. PO SCH (12:11)
[2017-01-20] MEDS: CARVEDILOL 12.5 MG TABLET. PO SCH ×2 (12:11→17:34)
[2017-01-20] MEDS: PREGABALIN 75 MG CAPSULE PO SCH ×2 (12:12→21:13)
[2017-01-20] MEDS: ASPIRIN ENTERIC COATED 81 MG TABLET.DR. PO SCH (12:12)
[2017-01-20] MEDS: PANTOPRAZOLE 40 MG TABLET.DR. PO SCH (12:12)
[2017-01-20] MEDS: AMIODARONE HCL 200 MG TABLET. PO SCH (12:12)
[2017-01-20] MEDS: ASCORBIC ACID 500 MG TABLET PO SCH (12:13)
[2017-01-20] MEDS ORDERED: MAGNESIUM SULFATE 2GM 50 ML IV PRN (12:15)
[2017-01-20] MEDS: INSULIN ASPART 300 UNITS/3 ML INSULN.PEN SQ SCH ×2 (12:17→17:37)
--- NOTE | 2017-01-20 12:18 | PDOC2 ---
CONSULT Date of Consult Date of Consult DATE: 01/20/17 TIME: 12:06 Reason for Consult Reason for Consult: VARUN/ CK DIII Referring Physician Referring Physician: Dr Foley Identification/Chief Complaint Chief Complaint AMS Problems: Source Source: Caregiver (as discussed with Dr Foley), Chart review History of Present Illness Reason for Visit: as dictated Current Problem List Problem List Problems Medical Problems: (1) Acute on chronic renal insufficiency Status: Acute (2) Generalized weakness Status: Acute (3) Hypoglycemia Status: Acute Current Medications Current Medications Current Medications Dextrose 500 ml @ 150 mls/hr 1X ONCE IV Last administered on 01/19/17 23:15 ; Start 01/19/17 at 23:15; Stop 01/20/17 at 02:34; Status DC Sodium Chloride 1,000 ml @ 100 mls/hr Q10H IV Last administered on 01/20/17 11:15; Start 01/20/17 at 11:15 Amiodarone HCl (Cordarone) 200 mg BID PO ; Start 01/20/17 at 12:00 Ascorbic Acid (Vitamin C) 500 mg DAILY PO ; Start 01/20/17 at 12:00 Aspirin (Ecotrin) 81 mg DAILY PO ; Start 01/20/17 at 12:00 Carvedilol (Coreg) 12.5 mg BIDWMEALS PO ; Start 01/20/17 at 12:00 Cetirizine HCl (ZyrTEC) 10 mg DAILY PO ; Start 01/20/17 at 12:00 Vitamin D (Vitamin D3) 2,000 unit DAILY PO ; Start 01/20/17 at 12:00 Docusate Sodium (Colace) 200 mg QHS PO ; Start 01/20/17 at 21:00 Donepezil HCl (Aricept) 10 mg QHS PO ; Start 01/20/17 at 21:00 Ferrous Sulfate (Feosol) 325 mg DAILY PO ; Start 01/20/17 at 12:00 Pregabalin (Lyrica) 75 mg BID PO ; Start 01/20/17 at 12:00 Rivaroxaban (Xarelto) 15 mg DAILYWSUP PO ; Start 01/20/17 at 17:00 Atorvastatin Calcium (Lipitor) 80 mg QHS PO ; Start 01/20/17 at 21:00 Memantine (Namenda) 10 mg BID PO ; Start 01/20/17 at 12:00 Pantoprazole Sodium (Protonix) 40 mg DAILYAC PO ; Start 01/20/17 at 12:00 Quetiapine Fumarate (SEROquel) 50 mg QHS PO ; Start 01/20/17 at 21:00 Insulin Detemir (Levemir) 30 units QHS SQ ; Start 01/20/17 at 21:00 Insulin Aspart (NovoLOG) 0-7 UNITS TIDWMEALS SQ ; Start 01/20/17 at 12:00 Dextrose (Dextrose 50%-Water Syringe) 12.5 gm PRN Q15MIN PRN IV SEE COMMENTS; Start 01/20/17 at 11:45 Active Scripts Active Potassium Chloride 10 Meq Capsule.er 10 Meq PO BID 30 Days Reported Ferrous Sulfate 325 Mg Tablet 1 Tab PO DAILY [humalog] Levemir (Insulin Detemir) 100 Unit/1 Ml Vial 45 Unit SQ Voltaren (Diclofenac Sodium) 100 Gm Gel..gram. 1 Gm TP BID Zyrtec (Cetirizine Hcl) 10 Mg Tablet 1 Tab PO DAILY Vitamin E (Vitamin E Mixed) 400 Unit Capsule 400 Unit PO DAILY Vitamin D3 (Cholecalciferol (Vitamin D3)) 1,000 Unit Tablet 2 Tab PO DAILY Vitamin C (Ascorbic Acid) 500 Mg Tablet 500 Mg PO DAILY Colace (Docusate Sodium) 100 Mg Capsule 250 Mg PO DAILY Seroquel (Quetiapine Fumarate) 50 Mg Tablet 1 Tab PO QHS Lisinopril 20 Mg Tablet 1 Tab PO BID Hydrochlorothiazide Capsule (Hydrochlorothiazide) 12.5 Mg Capsule 12.5 Mg PO DAILY Furosemide 40 Mg Tablet 40 Mg PO BID Amiodarone Hcl 200 Mg Tablet 1 Tab PO BID Spironolactone 25 Mg Tablet 12.5 Mg PO DAILY Xarelto (Rivaroxaban) 15 Mg Tablet 15 Mg PO DAILY Namenda Xr (Memantine Hcl) 28 Mg Cap.spr.24 28 Mg PO HS Melatonin 10 Mg Tablet (Melatonin/Pyridoxine Hcl (B6)) 1 Each Tab.mphase 1 Each PO Aspir 81 (Aspirin) 81 Mg Tablet.dr 1 Tab PO DAILY Omeprazole 20 Mg Capsule.dr 1 Cap PO DAILY Lyrica (Pregabalin) 75 Mg Capsule 1 Cap PO BID Aricept (Donepezil Hcl) 10 Mg Tablet 1 Tab PO QHS Carvedilol 12.5 Mg Tablet 1 Tab PO BID Atorvastatin Calcium 80 Mg Tablet 1 Tab PO DAILY Allergies Allergies: Coded Allergies: Sulfa (Sulfonamide Antibiotics) (Verified Allergy, Intermediate, 09/22/15) morphine (Verified Allergy, Intermediate, 09/22/15) ROS Review of System Pt denies all ROS Qs and refers me to his who is not available. Have reviewed ROS in HPI as documented elsewhere so far Physical Exam Physical Exam General Appearance: Awake Alert Oriented x 0-1 In no Distress; baldness Eyes: Sclera Anicteric; Conjunctiva Normal EN: No EN Drainage Mucous Memb. moist Neck: no JVD min JVP Supple no Thyromegaly CVS: S1 S2 ? soft Murmur No Gallop No Rub no Edema Resp: no Rales no Rhonchi no Acc. Muscle use GI: BS +ve NO Bruit Non Tender Non Distended - obese : no CVA tenderness; no Suprapubic Tenderness SKIN: no Rashes Breast Exam deferred Mu.Sk: limited ROM no Muscle Atrophy Heme: Unable to palpate Obvious LAD no palp Splenomegaly NEURO: Good Strength and Tone Cranial Nerves II - XII grossly intact; underlying dementia Psych: ? Depressed flat affect; no Active hallucination Vital Signs Vital Signs Date Time Temp Pulse Resp B/P (MAP) Pulse Ox O2 Delivery O2 Flow Rate FiO2 01/20/17 11:25 98.1 78 16 115/60 (78) 100 Room Air 98.1 01/20/17 08:00 2.0 Assessment & Plan VARUN - presumably VMN from dehydration, R/o ZAYAS. KAITLIN + NSAIDs + Diuretics in setting of CKD III .Current FLuid and E-lyte status does not necessitate emergent need for Dialysis. Will re-evaluate for Dialysis in am CKD III due to HTN and DM - baseline creat was 1.5 in 07/2015. cehck US. ^ed LFTs - will chekc US of RUQ too Vol depeltion - agree with IVF as ordered HTN: Current BP meds reviewed. See orders for changes. Discussed Plan of Care and prognosis etc. at length with family. Labs Labs Laboratory Tests Test 01/19/17 22:10 01/19/17 22:15 01/19/17 23:41 01/20/17 00:17 White Blood Count 11.5 x10^3/uL (4.0-11.0) Red Blood Count 4.36 x10^6/uL (4.30-5.70) Hemoglobin 13.0 g/dL (13.0-17.5) Hematocrit 39.1 % (39.0-53.0) Mean Corpuscular Volume 90 fL (79-100) Mean Corpuscular Hemoglobin 30 pg (25-35) Mean Corpuscular Hemoglobin Concent 33 g/dL (31-37) Red Cell Distribution Width 14.6 % (11.5-14.5) Platelet Count 164 x10^3/uL (140-400) Neutrophils (%) (Auto) 73 % (31-73) Lymphocytes (%) (Auto) 9 % (24-48) Monocytes (%) (Auto) 15 % (0-9) Eosinophils (%) (Auto) 3 % (0-3) Basophils (%) (Auto) 0 % (0-3) Neutrophils # (Auto) 8.4 x10^3uL (1.8-7.7) Lymphocytes # (Auto) 1.0 x10^3/uL (1.0-4.8) Monocytes # (Auto) 1.7 x10^3/uL (0.0-1.1) Eosinophils # (Auto) 0.3 x10^3/uL (0.0-0.7) Basophils # (Auto) 0.0 x10^3/uL (0.0-0.2) Sodium Level 137 mmol/L (136-145) Potassium Level 4.3 mmol/L (3.5-5.1) Chloride Level 98 mmol/L (98-107) Carbon Dioxide Level 26 mmol/L (21-32) Anion Gap 13 (6-14) Blood Urea Nitrogen 105 mg/dL (8-26) Creatinine 2.9 mg/dL (0.7-1.3) Estimated GFR (Cockcroft-Gault) 21.2 BUN/Creatinine Ratio 36 (6-20) Glucose Level 50 mg/dL (70-99) Calcium Level 9.1 mg/dL (8.5-10.1) Magnesium Level 2.4 mg/dL (1.8-2.4) Total Bilirubin 0.4 mg/dL (0.2-1.0) Aspartate Amino Transf (AST/SGOT) 325 U/L (15-37) Alanine Aminotransferase (ALT/SGPT) 448 U/L (16-63) Alkaline Phosphatase 104 U/L (46-116) Creatine Kinase 329 U/L (39-308) Creatine Kinase MB (Mass) 4.1 ng/mL (0.0-3.6) Creatine Kinase MB Relative Index 1.2 % (0-4) Troponin I Quantitative 0.020 ng/mL (0.000-0.055) RZ-Wws-P-Type Natriuretic Peptide 3695 pg/mL (0-449) Total Protein 7.2 g/dL (6.4-8.2) Albumin 3.2 g/dL (3.4-5.0) Albumin/Globulin Ratio 0.8 (1.0-1.7) Urine Collection Type Void Urine Color Yellow Urine Clarity Clear Urine pH 5.5 Urine Specific Mica 1.015 Urine Protein Negative mg/dL (NEG-TRACE) Urine Glucose (UA) Negative mg/dL (NEG) Urine Ketones (Stick) Negative mg/dL (NEG) Urine Blood Negative (NEG) Urine Nitrite Negative (NEG) Urine Bilirubin Negative (NEG) Urine Urobilinogen Dipstick 0.2 mg/dL (0.2 mg/dL) Urine Leukocyte Esterase Negative (NEG) Urine RBC 0 /HPF (0-2) Urine WBC Occ /HPF (0-4) Urine Squamous Epithelial Cells None /LPF Urine Bacteria 0 /HPF (0-FEW) Urine Hyaline Casts Few /HPF Urine Mucus Slight /LPF Glucose (Fingerstick) 123 mg/dL (70-99) 151 mg/dL (70-99) Test 01/20/17 03:46 01/20/17 07:30 01/20/17 11:38 Glucose (Fingerstick) 225 mg/dL (70-99) 157 mg/dL (70-99) 249 mg/dL (70-99) Laboratory Tests Test 01/19/17 22:10 01/19/17 22:15 01/19/17 23:41 01/20/17 00:17 White Blood Count 11.5 x10^3/uL (4.0-11.0) Red Blood Count 4.36 x10^6/uL (4.30-5.70) Hemoglobin 13.0 g/dL (13.0-17.5) Hematocrit 39.1 % (39.0-53.0) Mean Corpuscular Volume 90 fL (79-100) Mean Corpuscular Hemoglobin 30 pg (25-35) Mean Corpuscular Hemoglobin Concent 33 g/dL (31-37) Red Cell Distribution Width 14.6 % (11.5-14.5) Platelet Count 164 x10^3/uL (140-400) Neutrophils (%) (Auto) 73 % (31-73) Lymphocytes (%) (Auto) 9 % (24-48) Monocytes (%) (Auto) 15 % (0-9) Eosinophils (%) (Auto) 3 % (0-3) Basophils (%) (Auto) 0 % (0-3) Neutrophils # (Auto) 8.4 x10^3uL (1.8-7.7) Lymphocytes # (Auto) 1.0 x10^3/uL (1.0-4.8) Monocytes # (Auto) 1.7 x10^3/uL (0.0-1.1) Eosinophils # (Auto) 0.3 x10^3/uL (0.0-0.7) Basophils # (Auto) 0.0 x10^3/uL (0.0-0.2) Sodium Level 137 mmol/L (136-145) Potassium Level 4.3 mmol/L (3.5-5.1) Chloride Level 98 mmol/L (98-107) Carbon Dioxide Level 26 mmol/L (21-32) Anion Gap 13 (6-14) Blood Urea Nitrogen 105 mg/dL (8-26) Creatinine 2.9 mg/dL (0.7-1.3) Estimated GFR (Cockcroft-Gault) 21.2 BUN/Creatinine Ratio 36 (6-20) Glucose Level 50 mg/dL (70-99) Calcium Level 9.1 mg/dL (8.5-10.1) Magnesium Level 2.4 mg/dL (1.8-2.4) Total Bilirubin 0.4 mg/dL (0.2-1.0) Aspartate Amino Transf (AST/SGOT) 325 U/L (15-37) Alanine Aminotransferase (ALT/SGPT) 448 U/L (16-63) Alkaline Phosphatase 104 U/L (46-116) Creatine Kinase 329 U/L (39-308) Creatine Kinase MB (Mass) 4.1 ng/mL (0.0-3.6) Creatine Kinase MB Relative Index 1.2 % (0-4) Troponin I Quantitative 0.020 ng/mL (0.000-0.055) MQ-Ovp-W-Type Natriuretic Peptide 3695 pg/mL (0-449) Total Protein 7.2 g/dL (6.4-8.2) Albumin 3.2 g/dL (3.4-5.0) Albumin/Globulin Ratio 0.8 (1.0-1.7) Urine Collection Type Void Urine Color Yellow Urine Clarity Clear Urine pH 5.5 Urine Specific Mica 1.015 Urine Protein Negative mg/dL (NEG-TRACE) Urine Glucose (UA) Negative mg/dL (NEG) Urine Ketones (Stick) Negative mg/dL (NEG) Urine Blood Negative (NEG) Urine Nitrite Negative (NEG) Urine Bilirubin Negative (NEG) Urine Urobilinogen Dipstick 0.2 mg/dL (0.2 mg/dL) Urine Leukocyte Esterase Negative (NEG) Urine RBC 0 /HPF (0-2) Urine WBC Occ /HPF (0-4) Urine Squamous Epithelial Cells None /LPF Urine Bacteria 0 /HPF (0-FEW) Urine Hyaline Casts Few /HPF Urine Mucus Slight /LPF Glucose (Fingerstick) 123 mg/dL (70-99) 151 mg/dL (70-99) Test 01/20/17 03:46 01/20/17 07:30 01/20/17 11:38 Glucose (Fingerstick) 225 mg/dL (70-99) 157 mg/dL (70-99) 249 mg/dL (70-99) ANDERS MEDELLIN MD Jan 20, 2017 12:18
--- NOTE | 2017-01-20 12:28 | HP ---
ADMIT DATE: 01/19/2017 CHIEF COMPLAINT: Weakness. HISTORY OF PRESENT ILLNESS: The patient is a 76-year-old male who was brought from home by EMS with the above complaint. The patient had apparently been feeling increasingly weak over the past 1-2 days. He is usually up and around with a walker, but felt unable to get out of his recliner on the day of admission. When he was unable to get up to go to the restroom and instead accidental urinated on himself, his called EMS. Initial evaluation in the Emergency Room showed the patient to be hypoglycemic with a blood sugar of 50. He was also found to be in acute renal failure. Treatment was initiated and he was admitted for further care. PAST MEDICAL HISTORY: Diabetes mellitus type 2, insulin-dependent, chronic anemia, chronic kidney disease stage 3, hyperlipidemia, congestive heart failure, hypertension, coronary artery disease, dementia, possible hepatitis. PAST SURGICAL HISTORY: CABG 2011, pacemaker placement in 2012, several back surgeries, shoulder surgery, tonsillectomy. HOME MEDICATIONS: Amiodarone 200 mg daily, aspirin 81 mg daily, atorvastatin 80 mg daily, carvedilol 12.5 mg b.i.d., donepezil 10 mg daily, iron 325 mg daily, furosemide 40 mg b.i.d., hydrochlorothiazide 12.5 mg daily, Levemir insulin 45 units at bedtime, Humalog insulin sliding scale, lisinopril 20 mg b.i.d., Namenda XR 28 mg daily, omeprazole 20 mg daily, potassium 10 mEq b.i.d., Lyrica 75 mg b.i.d., Seroquel 50 mg at bedtime, Xarelto 15 mg daily, spironolactone 25 mg daily. FAMILY HISTORY: Noncontributory. SOCIAL HISTORY: The patient is and lives at home with his . He quit smoking cigarettes many years ago. There is no report of excess alcohol use. REVIEW OF SYSTEMS: This is somewhat difficult to obtain due to the patient's dementia. There may have been some subjective fever or chills recently. He denies cough or shortness of breath. He denies chest pain or palpitations. He denies abdominal pain, nausea or vomiting. He denies lower extremity edema. He denies dysuria. He states that he has been taking his medication daily because his supervises this. He had been taking his usual insulin and did not remember feeling that his blood sugar was too low. PHYSICAL EXAMINATION: GENERAL: The patient is alert and oriented to person and place. He is resting comfortably in bed in no acute distress. HEENT: EDMAR, EOMI, sclerae clear. Oropharynx: Mucous membranes somewhat dry. NECK: Supple, without lymphadenopathy. CHEST: Clear to auscultation with normal respiratory effort. CARDIOVASCULAR: Regular rhythm without murmur. ABDOMEN: Soft, nontender, normoactive bowel sounds are present. EXTREMITIES: Without edema. ASSESSMENT AND PLAN: 1. Acute renal failure with chronic kidney disease stage 3. The patient's lab at admission was significantly worsened from his baseline. We have ordered IV fluids and will consult Nephrology to help with treatment. There was no lab from this morning yet and this has been ordered. The patient had an elevated CK at admission also. This could have been from feeling weak and not having been out of his recliner for a day or so as there was not history reported of a fall. Repeat lab is ordered on this also. 2. Hypoglycemia with diabetes mellitus type 2. The patient is on insulins at home. His diabetes was fairly well controlled with a recent A1c of 8.3. We will decrease his insulin to avoid hypoglycemia and follow his fingersticks here. 3. History of congestive heart failure, coronary artery disease and cardiomyopathy. The patient has seen Dr. Gaming for these conditions, but may not have been seen in his office in the past year, per our office chart. The diuretics are obviously on hold due to renal failure. We will continue his other cardiac medications. A consult with Dr. Gaming is pending. Troponin was slightly elevated at 0.02 at admission and the patient does not complain of chest pain. Chest x-ray showed a possible mild perihilar interstitial opacities, which could be secondary to poor inspiratory effort. 4. Elevated liver enzymes. This was not seen on a previous lab in our office. The patient denies abdominal pain. Repeat lab is ordered for today. Further evaluation of this will be considered if the enzymes remain elevated. There was also some history of possible hepatitis on the office and hospital charts. Hepatitis panel is ordered. 5. Hypertension. Lisinopril is on hold. Continue other home medications and adjust as indicated. 6. Dementia. Continue home medications and supportive care. 7. Debility. Therapies are ordered for evaluation. BLANQUITA MARTÍNEZ MD DR: JAZMIN/kathryn JOB#: [id number] / [id number] TARUN
[2017-01-20 13:45] LABS: ALBUMIN/GLOBULIN RATIO 0.7 (1.0-1.7); CALCIUM 9.3 mg/dL (8.5-10.1); CREATININE 2.3 mg/dL (0.7-1.3); GFR 27.6; POTASSIUM 4.4 mmol/L (3.5-5.1); TOTAL BILIRUBIN 0.5 mg/dL (0.2-1.0); TOTAL PROTEIN 7.1 g/dL (6.4-8.2)
--- NOTE | 2017-01-20 13:59 | EKG ---
[facility] [address] [place] [address] Test Date: 2017-01-19 Test Time: 21:59:27 Pat Name: JOHN ROBERTS Department: Room: [facility] 1 Gender: M Wood Type Cutter: : 1940 Requested By: JC VALLES Order Number: [id number] Reading MD: Santana An Measurements Intervals Cascade Rate: 60 P: W[place]: QRS: -43 QRSD: 164 T: 146 QT: 474 QTc: 479 Interpretive Statements A V PACED Electronically Signed On 01-25-2017 16:10:03 PSYCH COORDINATOR by Santana An
--- NOTE | 2017-01-20 14:21 | RAD ---
ABDOMEN COMPLETE Clinical Indication: CKD + VARUN and ed LFTs Comparison: None. Technique: Transverse and longitudinal sonography of the abdomen is performed. Findings: The pancreas is obscured by overlying bowel gas. IVC appears patent. Proximal aorta is obscured, with mid and distal aorta normal in caliber. The liver demonstrates normal contour and echogenicity measuring 14.8 cm. Main portal vein demonstrates normal directional flow. No focal intrahepatic lesion seen within the provided images. Gallbladder demonstrates no intraluminal gallstones, wall thickening or pericholecystic fluid. Common bile duct measures 3 mm in diameter. The right kidney is visualized measuring 13.1 x 5.9 x 6.8 cm, without evidence of hydronephrosis. The spleen is partially visualized measuring 12.0 cm. The left kidney is visualized measuring 12.5 x 5.3 x 7.0 cm, without evidence of hydronephrosis. No free fluid is seen within the provided images. The urinary bladder is minimally distended and therefore not well evaluated. The prostate is seen with resulting in impression upon the urinary bladder. Prostate appears to measure up to 6.7 cm in greatest dimension. IMPRESSION: 1. No acute sonographic finding in the abdomen. 2. Prominent prostate.
[2017-01-20] MEDS: traMADol 50 MG TABLET PO PRN (17:33)
[2017-01-20] MEDS: RIVAROXABAN 15 MG TABLET. PO SCH (17:33)
[2017-01-20] MEDS: ATORVASTATIN CALCIUM 40 MG TABLET. PO SCH (21:12)
[2017-01-20] MEDS: DOCUSATE SODIUM 100 MG CAPSULE. PO SCH (21:13)
[2017-01-20] MEDS: DONEPEZIL HCL 10 MG TABLET. PO SCH (21:13)
[2017-01-20] MEDS: INSULIN DETEMIR 300 UNITS/3 ML INSULN.PEN. SQ SCH (21:18)
[2017-01-20] MEDS: QUEtiapine 25 MG TABLET. PO SCH (21:21)
[2017-01-21 03:32] VITALS: BP 103/63
[2017-01-21 06:08] LABS: ALBUMIN 2.8 g/dL (3.4-5.0); CALCIUM 9.2 mg/dL (8.5-10.1); CREATININE 1.8 mg/dL (0.7-1.3); GFR 36.7; MAGNESIUM 2.5 mg/dL (1.8-2.4); PHOSPHORUS 2.9 mg/dL (2.6-4.7); POTASSIUM 4.1 mmol/L (3.5-5.1)
[2017-01-21 07:00] VITALS: BP 121/71
[2017-01-21] MEDS: IV NORMAL SALINE 1000ML BAG 1,000 ML IV SCH (07:07)
--- NOTE | 2017-01-21 07:59 | CONS ---
DATE OF CONSULTATION: PRIMARY PHYSICIAN: Dr. Foley REASON FOR CONSULTATION: Acute on chronic renal insufficiency. HISTORY OF PRESENT ILLNESS: The patient is a 76-year-old gentleman with underlying CKD stage 3. Creatinine of 1.5 as of 07/2015. He is known to have long-standing diabetes, hypertension and his CKD is presumed to be on the basis of the same. He presented to the ER at the behest of his via EMS. The had noted increasing weakness, whereby he was unable to ambulate unassistedly with his walker. He also had fallen recently. He has been on NSAIDs. There was some amount of cold sweats and shaking also noted. Per the ER note, the patient is a poor historian and is unable to provide much in terms of history by himself. He does not know where he is or why he is here. At this time, he was admitted to the hospital for further evaluation. He was given IV fluids. His creatinine was noted to be elevated at 2.9 on presentation with elevated LFTs and minimally elevated CK of 329 after the fall. Labs from this morning are pending at this time. Urine output as recorded is about 1200 mL. We were asked to see him for worsening renal sufficiency. MEDICATIONS: The patient is noted to be on diclofenac, KAITLIN inhibitors and diuretics per home list of medications. PAST MEDICAL HISTORY: Significant for diabetes, CAD, dementia, hyperlipidemia, hypertension, coronary artery bypass surgery, pacemaker placement, back and shoulder surgeries. He is also noted to have history of peripheral neuropathy, tonsillectomy, adenoidectomy and dyslipidemia if not mentioned previously. Occasional constipation, chronic arthritis, back pain and history of possible hepatitis B. SOCIAL HISTORY: . Lives with his . Previous smoker and alcohol user. FAMILY HISTORY: Negative as per the patient for renal failure; however, he does not appear to have a good memory at this time. For rest of details, see electronic records. ANDERS MEDELLIN MD DR: ESTEBAN/kathryn JOB#: [id number] / [id number]
[2017-01-21] MEDS ORDERED: BISACODYL 10 MG SUPP.RECT. PR ONE (08:00)
[2017-01-21] MEDS: INSULIN ASPART 300 UNITS/3 ML INSULN.PEN SQ SCH ×5 (08:00→17:53)
[2017-01-21] MEDS: CARVEDILOL 12.5 MG TABLET. PO SCH ×2 (08:00→17:49)
--- NOTE | 2017-01-21 08:14 | PDOC ---
SUBJECTIVE Subjective Pt says he is not doing very well this morning. Complains of rib pain, worse when he coughs, but then denies cough. Feels that he may still have a little bit of issues with breathing. Unsure when his last bowel movement was. OBJECTIVE Vital Signs Vital Signs Date Time Temp Pulse Resp B/P (MAP) Pulse Ox O2 Delivery O2 Flow Rate FiO2 01/21/17 03:32 98.3 57 18 103/63 (76) 96 Nasal Cannula 2.0 98.3 01/20/17 23:42 97.9 53 18 103/82 (89) 97 Nasal Cannula 2.0 97.9 01/20/17 20:00 Nasal Cannula 2.0 01/20/17 19:00 97.7 65 18 111/82 (92) 96 Room Air 97.7 01/20/17 18:33 18 96 Nasal Cannula 2.0 01/20/17 17:34 78 121/56 01/20/17 17:33 20 96 Nasal Cannula 2.0 01/20/17 14:54 97.9 78 16 121/56 (77) 96 Room Air 97.9 01/20/17 12:12 78 115/60 01/20/17 12:11 78 115/60 01/20/17 11:25 98.1 78 16 115/60 (78) 100 Room Air 98.1 01/20/17 08:00 Nasal Cannula 2.0 I & O Intake and Output 01/21/17 07:00 Intake Total 1340 ml Output Total 2450 ml Balance -1110 ml Intake Oral 1340 ml Output Urine Total 2450 ml PHYSICAL EXAM Physical Exam GENERAL: The patient is alert and oriented to person and place. NAD HEENT: EDMAR, EOMI, sclerae clear, MMM NECK: Supple, without lymphadenopathy. CHEST: Clear to auscultation with normal respiratory effort. CARDIOVASCULAR: Regular rhythm with systolic ejection murmur ABDOMEN: Soft, normoactive bowel sounds are present, rebound tenderness present throughout lower abdomen EXTREMITIES: Without edema/erythema NUERO: CN2-12 GI ASSESSMENT/PLAN Assessment/Plan Pt is a 76yo CM admitted for generalized weakness and acute on chronic renal failure 1. Acute renal failure with CKD III - lab significantly worsened from baseline at admission. IVF ordered, nephrology following. Cr improved this morning. 2. hypoglycemia with DM2 - pt's insulin currently decreased. Glucose on admission was 50, recent HbA1C in the office was 8.3. Currently receiving Levemir 30 units and has SSI. Fasting BS moderately controlled this am. Will start Novolog 4units QA. 3. Hx CHF, CAD and Cardiomyopathy - patient has seen Dr Gaming for these conditions but may not have been seen in the past year per his office chart. Diuretics on hold due to renal failure, continuing his other cardiac meds. Consult with Dr Gaming pending. Troponin slightly elevated, patient denies symptoms. Continue Amiodarone, Xarelto 4. Elevated LFT's - not seen on previous lab in our office. History of Hepatitis ; hepatitis screening pending 5. Abdominal pain- rebound tenderness. CT Abdomen ordered 6. HTN - Lisinopril on hold, continue Carvedilol 12.5mg BID 6. dementia - continue Namenda,Donepezil, Seroquel 7. debility - therapies ordered for evaluation 8. HLD- continue Atorvastatin 80mg 9. Chronic pain- continue Tramadol and Lyrica 10. GERD- continue Pantoprazole 11. Leukocytosis- no symptoms of active infection. CTM 12. PEM- moderate 13. Enlarged prostate- seen on U/S. PSA ordered Problems: COMMENT Lab Laboratory Tests Test 01/20/17 11:38 01/20/17 13:05 01/20/17 16:28 01/20/17 19:58 Glucose (Fingerstick) 249 mg/dL (70-99) 216 mg/dL (70-99) 245 mg/dL (70-99) Sodium Level 136 mmol/L (136-145) Potassium Level 4.4 mmol/L (3.5-5.1) Chloride Level 101 mmol/L (98-107) Carbon Dioxide Level 27 mmol/L (21-32) Anion Gap 8 (6-14) Blood Urea Nitrogen 81 mg/dL (8-26) Creatinine 2.3 mg/dL (0.7-1.3) Estimated GFR (Cockcroft-Gault) 27.6 BUN/Creatinine Ratio 35 (6-20) Glucose Level 220 mg/dL (70-99) Uric Acid 8.3 mg/dL (3.5-7.2) Calcium Level 9.3 mg/dL (8.5-10.1) Total Bilirubin 0.5 mg/dL (0.2-1.0) Aspartate Amino Transf (AST/SGOT) 359 U/L (15-37) Alanine Aminotransferase (ALT/SGPT) 511 U/L (16-63) Alkaline Phosphatase 100 U/L (46-116) Creatine Kinase 214 U/L (39-308) Total Protein 7.1 g/dL (6.4-8.2) Albumin 3.0 g/dL (3.4-5.0) Albumin/Globulin Ratio 0.7 (1.0-1.7) Test 01/21/17 05:15 01/21/17 07:37 Hemoglobin 12.6 g/dL (13.0-17.5) Sodium Level 140 mmol/L (136-145) Potassium Level 4.1 mmol/L (3.5-5.1) Chloride Level 107 mmol/L (98-107) Carbon Dioxide Level 25 mmol/L (21-32) Anion Gap 8 (6-14) Blood Urea Nitrogen 60 mg/dL (8-26) Creatinine 1.8 mg/dL (0.7-1.3) Estimated GFR (Cockcroft-Gault) 36.7 Glucose Level 151 mg/dL (70-99) Calcium Level 9.2 mg/dL (8.5-10.1) Phosphorus Level 2.9 mg/dL (2.6-4.7) Magnesium Level 2.5 mg/dL (1.8-2.4) Albumin 2.8 g/dL (3.4-5.0) Glucose (Fingerstick) 121 mg/dL (70-99) OTTONIEL STEARNS MD Jan 21, 2017 08:14
[2017-01-21] MEDS: ASPIRIN ENTERIC COATED 81 MG TABLET.DR. PO SCH (09:21)
[2017-01-21] MEDS: CETIRIZINE HCL 10 MG TABLET. PO SCH (09:22)
[2017-01-21] MEDS: ASCORBIC ACID 500 MG TABLET PO SCH (09:22)
[2017-01-21] MEDS: AMIODARONE HCL 200 MG TABLET. PO SCH (09:22)
[2017-01-21] MEDS: PREGABALIN 75 MG CAPSULE PO SCH ×2 (09:22→21:16)
[2017-01-21] MEDS: MEMANTINE 10 MG TABLET. PO SCH ×2 (09:22→21:16)
[2017-01-21] MEDS: CHOLECALCIFEROL (VITAMIN D3) 1,000 UNIT TABLET PO SCH (09:22)
[2017-01-21] MEDS: PANTOPRAZOLE 40 MG TABLET.DR. PO SCH (09:23)
[2017-01-21] MEDS: FERROUS SULFATE 325 MG TABLET. PO SCH (09:23)
[2017-01-21] MEDS: traMADol 50 MG TABLET PO PRN ×2 (10:49→18:11)
[2017-01-21 10:55] VITALS: BP 139/72
[2017-01-21] MEDS: ANTI-COAG MONITOR BY PHARMACY. MC PRN (11:03)
--- NOTE | 2017-01-21 11:56 | RAD ---
CT of the abdomen without contrast, 01/21/2017: History: Abdominal pain Noncontrast scans were obtained as requested. The heart is enlarged. Moderate coronary artery calcifications are present. A transvenous lead extends into the right ventricle. There are bibasilar linear parenchymal opacities suggesting scarring and/or atelectasis. No pleural fluid is evident. No hepatic abnormality is detected. The gallbladder is unremarkable. No pancreatic abnormality is detected. The spleen is of normal size. There is mild bilateral renal cortical scarring. There is minimal streaky perinephric edema. The renal collecting systems and ureters are not dilated. The adrenal glands are unremarkable. There is moderate aortic calcific plaquing without evidence of aneurysm. No retroperitoneal or mesenteric adenopathy is seen. The visualized bowel loops are not dilated. A couple of scattered colonic diverticula are noted. No paracolonic inflammatory process is seen. No free fluid or free air is seen in the abdomen. There are moderate degenerative changes in the spine, most severe at the L4-5 disc level. There has been a lower lumbar laminectomy. There is a mild vertebral compression fracture at T9, of indeterminate age. IMPRESSION: 1. Bilateral renal cortical scarring with minimal bilateral perinephric edema. 2. No acute abdominal abnormality is detected. 3. Mild T9 vertebral compression fracture of indeterminate age.
[2017-01-21 13:16] LABS: HEP A IGM ABDY Negative (Negative)
--- NOTE | 2017-01-21 14:29 | PDOC ---
SUBJECTIVE ROS VARUN looking and doing much better today CVS: no Orthopnea, no CP RESP: no SOB, no MENDEZ GI: no Nausea, no Vomiting : no Dysuria, no Urgency OBJECTIVE Vital Signs Vital Signs Date Time Temp Pulse Resp B/P (MAP) Pulse Ox O2 Delivery O2 Flow Rate FiO2 01/21/17 11:49 19 98 Nasal Cannula 2.0 01/21/17 10:55 97.2 61 139/72 (94) 97.2 I & 0 Intake and Output 01/21/17 06:59 Intake Total 1340 ml Output Total 2450 ml Balance -1110 ml Intake Oral 1340 ml Output Urine Total 2450 ml PHYSICAL EXAM Physical Exam General Appearance: Awake Alert Oriented x 0-1 In no Distress; baldness Eyes: Sclera Anicteric; Conjunctiva Normal EN: No EN Drainage Mucous Memb. moist Neck: no JVD min JVP Supple no Thyromegaly CVS: S1 S2 ? soft Murmur No Gallop No Rub no Edema Resp: no Rales no Rhonchi no Acc. Muscle use GI: BS +ve NO Bruit Non Tender Non Distended - obese : no CVA tenderness; no Suprapubic Tenderness Assessment & Plan: VARUN - presumably VMN from dehydration, Better with IVF. Creat is close to baseline. Current FLuid and E-lyte status does not necessitate emergent need for Dialysis. Will re-evaluate for Dialysis in am CKD III due to HTN and DM - baseline creat was 1.5 in 07/2015. cehck US. This may be his new baseline. Not sure if Cardiac Murmur is contributing so check ECHO to guide fluid admin HEart murmur with recent fall - check ECHO ^ed LFTs - RUQ Us non-revealing Vol depeltion - IVF as ordered; D/c and reval trend Prostatomegaly - start flomax, pt is urinating well per RN, Bl Scan was not done HTN: Current BP meds reviewed. See orders for changes. COMMENT/RELEVANT DATA Meds Current Medications Medications (Trade) Dose Ordered Sig/Steff Start Time Stop Time Status Last Admin Dose Admin Amiodarone HCl (Cordarone) 200 mg DAILY 01/20/17 12:30 01/21/17 09:22 200 MG Ascorbic Acid (Vitamin C) 500 mg DAILY 01/20/17 12:00 01/21/17 09:22 500 MG Aspirin (Ecotrin) 81 mg DAILY 01/20/17 12:00 01/21/17 09:21 81 MG Atorvastatin Calcium (Lipitor) 80 mg QHS 01/20/17 21:00 01/20/17 21:12 80 MG Bisacodyl (Dulcolax Supp) 10 mg 1X ONCE 01/21/17 08:00 01/21/17 08:01 DC 01/21/17 12:12 10 MG Carvedilol (Coreg) 12.5 mg BIDWMEALS 01/20/17 12:00 01/20/17 17:34 12.5 MG Cetirizine HCl (ZyrTEC) 10 mg DAILY 01/20/17 12:00 01/21/17 09:22 10 MG Dextrose (Dextrose 50%-Water Syringe) 12.5 gm PRN Q15MIN PRN 01/20/17 11:45 Docusate Sodium (Colace) 200 mg QHS 01/20/17 21:00 01/20/17 21:13 200 MG Donepezil HCl (Aricept) 10 mg QHS 01/20/17 21:00 01/20/17 21:13 10 MG Ferrous Sulfate (Feosol) 325 mg DAILY 01/20/17 12:00 01/21/17 09:23 325 MG Info (Anti-Coagulation Monitoring By Pharmacy) 1 each PRN DAILY PRN 01/21/17 11:15 01/21/17 11:03 1 EACH Insulin Aspart (NovoLOG) 4 units TIDAC 01/21/17 11:30 01/21/17 12:19 4 UNITS Insulin Detemir (Levemir) 30 units QHS 01/20/17 21:00 01/20/17 21:18 30 UNITS Magnesium Sulfate/ Dextrose 50 ml @ 25 mls/hr PRN DAILY PRN 01/20/17 12:15 Memantine (Namenda) 10 mg BID 01/20/17 12:00 01/21/17 09:22 10 MG Pantoprazole Sodium (Protonix) 40 mg DAILYAC 01/20/17 12:00 01/21/17 09:23 40 MG Pregabalin (Lyrica) 75 mg BID 01/20/17 12:00 01/21/17 09:22 75 MG Quetiapine Fumarate (SEROquel) 50 mg QHS 01/20/17 21:00 01/20/17 21:21 50 MG Rivaroxaban (Xarelto) 15 mg DAILYWSUP 01/20/17 17:00 01/20/17 17:33 15 MG Sodium Chloride 1,000 ml @ 100 mls/hr Q10H 01/20/17 11:15 01/21/17 07:07 100 MLS/HR Tramadol HCl (Ultram) 50 mg PRN Q8HRS PRN 01/20/17 16:30 01/21/17 10:49 50 MG Vitamin D (Vitamin D3) 2,000 unit DAILY 01/20/17 12:00 01/21/17 09:22 2,000 UNIT Lab Laboratory Tests Test 01/20/17 16:00 01/20/17 16:28 01/20/17 19:58 01/21/17 05:15 Urine Random Sodium <60 mmol/L (Not Estab.) Glucose (Fingerstick) 216 mg/dL (70-99) 245 mg/dL (70-99) Hemoglobin 12.6 g/dL (13.0-17.5) Sodium Level 140 mmol/L (136-145) Potassium Level 4.1 mmol/L (3.5-5.1) Chloride Level 107 mmol/L (98-107) Carbon Dioxide Level 25 mmol/L (21-32) Anion Gap 8 (6-14) Blood Urea Nitrogen 60 mg/dL (8-26) Creatinine 1.8 mg/dL (0.7-1.3) Estimated GFR (Cockcroft-Gault) 36.7 Glucose Level 151 mg/dL (70-99) Calcium Level 9.2 mg/dL (8.5-10.1) Phosphorus Level 2.9 mg/dL (2.6-4.7) Magnesium Level 2.5 mg/dL (1.8-2.4) Troponin I Quantitative 0.018 ng/mL (0.000-0.055) Albumin 2.8 g/dL (3.4-5.0) Test 01/21/17 07:37 01/21/17 11:43 Glucose (Fingerstick) 121 mg/dL (70-99) 146 mg/dL (70-99) Other CT shows: 1. Bilateral renal cortical scarring with minimal bilateral perinephric edema. ANDERS MEDELLIN MD Jan 21, 2017 14:29
[2017-01-21 15:00] VITALS: BP 149/49
[2017-01-21] MEDS: RIVAROXABAN 15 MG TABLET. PO SCH (17:48)
[2017-01-21 19:25] VITALS: BP 94/67
--- NOTE | 2017-01-21 19:44 | PDOC2 ---
CONSULT Date of Consult Date of Consult DATE: 01/21/17 TIME: 19:38 Reason for Consult Reason for Consult: History of heart disease Referring Physician Referring Physician: Dr. Foley Identification/Chief Complaint Chief Complaint Acute renal failure and hypoglycemia Problems: History of Present Illness Reason for Visit: S patient is a 76-year-old gentleman with dementia that has a known history of coronary artery disease, CABG in 2011, pacemaker in 2012 and is a diabetic with chronic renal insufficiency. I have not seen the patient in over a year. He is not the best of historians. The patient had an episode of hypoglycemia and was feeling pretty sick and on arrival he was found to be in acute renal failure. After he was admitted the patient was reportedly having some episodes of bradycardia and he has a pacemaker that appears to be functioning normally. At the time that I examined him the patient denies having any chest pains, he denies any palpitations, he denies any loss of consciousness however he is a very poor historian and he doesn't even remember seeing me in the past. Past Medical History Cardiovascular: CAD, CHF, HTN CENTRAL NERVOUS SYSTEM: Dementia Renal/: Chronic renal insuff, Acute renal failure Endocrine: Diabetes Past Surgical History Past Surgical History: Pacemaker, CABG Current Problem List Problem List Problems Medical Problems: (1) Acute on chronic renal insufficiency Status: Acute (2) Generalized weakness Status: Acute (3) Hypoglycemia Status: Acute Current Medications Current Medications Current Medications Dextrose 500 ml @ 150 mls/hr 1X ONCE IV Last administered on 01/19/17 23:15 ; Start 01/19/17 at 23:15; Stop 01/20/17 at 02:34; Status DC Sodium Chloride 1,000 ml @ 100 mls/hr Q10H IV Last administered on 01/21/17 07:07; Start 01/20/17 at 11:15 Amiodarone HCl (Cordarone) 200 mg BID PO ; Start 01/20/17 at 12:00; Stop at 12:05; Status Cancel Ascorbic Acid (Vitamin C) 500 mg DAILY PO Last administered on 01/21/17 09:22 ; Start 01/20/17 at 12:00 Aspirin (Ecotrin) 81 mg DAILY PO Last administered on 01/21/17 09:21; Start 01/20/17 at 12:00 Carvedilol (Coreg) 12.5 mg BIDWMEALS PO Last administered on 01/21/17 17:49; Start 01/20/17 at 12:00 Cetirizine HCl (ZyrTEC) 10 mg DAILY PO Last administered on 01/21/17 09:22; Start 01/20/17 at 12:00 Vitamin D (Vitamin D3) 2,000 unit DAILY PO Last administered on 01/21/17 09:22 ; Start 01/20/17 at 12:00 Docusate Sodium (Colace) 200 mg QHS PO Last administered on 01/20/17 21:13; Start 01/20/17 at 21:00 Donepezil HCl (Aricept) 10 mg QHS PO Last administered on 01/20/17 21:13; Start 01/20/17 at 21:00 Ferrous Sulfate (Feosol) 325 mg DAILY PO Last administered on 01/21/17 09:23; Start 01/20/17 at 12:00 Pregabalin (Lyrica) 75 mg BID PO Last administered on 01/21/17 09:22; Start 01/20/17 at 12:00 Rivaroxaban (Xarelto) 15 mg DAILYWSUP PO Last administered on 01/21/17 17:48; Start 01/20/17 at 17:00 Atorvastatin Calcium (Lipitor) 80 mg QHS PO Last administered on 01/20/17 21: 12; Start 01/20/17 at 21:00 Memantine (Namenda) 10 mg BID PO Last administered on 01/21/17 09:22; Start 01/20/17 at 12:00 Pantoprazole Sodium (Protonix) 40 mg DAILYAC PO Last administered on 01/21/17 09:23; Start 01/20/17 at 12:00 Quetiapine Fumarate (SEROquel) 50 mg QHS PO Last administered on 01/20/17 21: 21; Start 01/20/17 at 21:00 Insulin Detemir (Levemir) 30 units QHS SQ Last administered on 01/20/17 21:18 ; Start 01/20/17 at 21:00 Insulin Aspart (NovoLOG) 0-7 UNITS TIDWMEALS SQ Last administered on 01/21/17 17:53; Start 01/20/17 at 12:00 Dextrose (Dextrose 50%-Water Syringe) 12.5 gm PRN Q15MIN PRN IV SEE COMMENTS; Start 01/20/17 at 11:45 Amiodarone HCl (Cordarone) 200 mg DAILY PO Last administered on 01/21/17 09:22 ; Start 01/20/17 at 12:30 Magnesium Sulfate/ Dextrose 50 ml @ 25 mls/hr PRN DAILY PRN IV for Mag < 1.7 on am labs; Start 01/20/17 at 12:15 Tramadol HCl (Ultram) 50 mg PRN Q8HRS PRN PO PAIN Last administered on 18:11; Start 01/20/17 at 16:30 Bisacodyl (Dulcolax Supp) 10 mg 1X ONCE RI Last administered on 01/21/17 12: 12; Start 01/21/17 at 08:00; Stop 01/21/17 at 08:01; Status DC Insulin Aspart (NovoLOG) 4 units TIDAC SQ Last administered on 01/21/17 17:52 ; Start 01/21/17 at 11:30 Info (Anti-Coagulation Monitoring By Pharmacy) 1 each PRN DAILY PRN MC SEE COMMENTS Last administered on 01/21/17 11:03; Start 01/21/17 at 11:15 Tamsulosin HCl (Flomax) 0.4 mg QHS PO ; Start 01/21/17 at 21:00 Active Scripts Active Potassium Chloride 10 Meq Capsule.er 10 Meq PO BID 30 Days Reported Ferrous Sulfate 325 Mg Tablet 1 Tab PO DAILY [humalog] Levemir (Insulin Detemir) 100 Unit/1 Ml Vial 45 Unit SQ Voltaren (Diclofenac Sodium) 100 Gm Gel..gram. 1 Gm TP BID Zyrtec (Cetirizine Hcl) 10 Mg Tablet 1 Tab PO DAILY Vitamin E (Vitamin E Mixed) 400 Unit Capsule 400 Unit PO DAILY Vitamin D3 (Cholecalciferol (Vitamin D3)) 1,000 Unit Tablet 2 Tab PO DAILY Vitamin C (Ascorbic Acid) 500 Mg Tablet 500 Mg PO DAILY Colace (Docusate Sodium) 100 Mg Capsule 250 Mg PO DAILY Seroquel (Quetiapine Fumarate) 50 Mg Tablet 1 Tab PO QHS Lisinopril 20 Mg Tablet 1 Tab PO BID Hydrochlorothiazide Capsule (Hydrochlorothiazide) 12.5 Mg Capsule 12.5 Mg PO DAILY Furosemide 40 Mg Tablet 40 Mg PO BID Amiodarone Hcl 200 Mg Tablet 1 Tab PO BID Spironolactone 25 Mg Tablet 12.5 Mg PO DAILY Xarelto (Rivaroxaban) 15 Mg Tablet 15 Mg PO DAILY Namenda Xr (Memantine Hcl) 28 Mg Cap.spr.24 28 Mg PO HS Melatonin 10 Mg Tablet (Melatonin/Pyridoxine Hcl (B6)) 1 Each Tab.mphase 1 Each PO Aspir 81 (Aspirin) 81 Mg Tablet.dr 1 Tab PO DAILY Omeprazole 20 Mg Capsule.dr 1 Cap PO DAILY Lyrica (Pregabalin) 75 Mg Capsule 1 Cap PO BID Aricept (Donepezil Hcl) 10 Mg Tablet 1 Tab PO QHS Carvedilol 12.5 Mg Tablet 1 Tab PO BID Atorvastatin Calcium 80 Mg Tablet 1 Tab PO DAILY Allergies Allergies: Coded Allergies: Sulfa (Sulfonamide Antibiotics) (Verified Allergy, Intermediate, 09/22/15) morphine (Verified Allergy, Intermediate, 09/22/15) I S O L A T I O N *CONTACT* (Verified Allergy, Unknown, 01/21/17) mrsa Physical Exam General: Alert, Cooperative HEENT: PERRLA Lungs: Clear to auscultation Heart: Regular rate, Normal S1, Normal S2 Abdomen: Normal bowel sounds, Soft Extremities: No edema Vitals VITALS Vital Signs Date Time Temp Pulse Resp B/P (MAP) Pulse Ox O2 Delivery O2 Flow Rate FiO2 01/21/17 18:11 20 98 Nasal Cannula 2.0 01/21/17 17:49 64 149/49 01/21/17 15:00 97.8 97.8 Labs Labs Laboratory Tests Test 01/19/17 22:10 01/19/17 22:15 01/19/17 23:41 01/20/17 00:17 White Blood Count 11.5 x10^3/uL (4.0-11.0) Red Blood Count 4.36 x10^6/uL (4.30-5.70) Hemoglobin 13.0 g/dL (13.0-17.5) Hematocrit 39.1 % (39.0-53.0) Mean Corpuscular Volume 90 fL (79-100) Mean Corpuscular Hemoglobin 30 pg (25-35) Mean Corpuscular Hemoglobin Concent 33 g/dL (31-37) Red Cell Distribution Width 14.6 % (11.5-14.5) Platelet Count 164 x10^3/uL (140-400) Neutrophils (%) (Auto) 73 % (31-73) Lymphocytes (%) (Auto) 9 % (24-48) Monocytes (%) (Auto) 15 % (0-9) Eosinophils (%) (Auto) 3 % (0-3) Basophils (%) (Auto) 0 % (0-3) Neutrophils # (Auto) 8.4 x10^3uL (1.8-7.7) Lymphocytes # (Auto) 1.0 x10^3/uL (1.0-4.8) Monocytes # (Auto) 1.7 x10^3/uL (0.0-1.1) Eosinophils # (Auto) 0.3 x10^3/uL (0.0-0.7) Basophils # (Auto) 0.0 x10^3/uL (0.0-0.2) Sodium Level 137 mmol/L (136-145) Potassium Level 4.3 mmol/L (3.5-5.1) Chloride Level 98 mmol/L (98-107) Carbon Dioxide Level 26 mmol/L (21-32) Anion Gap 13 (6-14) Blood Urea Nitrogen 105 mg/dL (8-26) Creatinine 2.9 mg/dL (0.7-1.3) Estimated GFR (Cockcroft-Gault) 21.2 BUN/Creatinine Ratio 36 (6-20) Glucose Level 50 mg/dL (70-99) Calcium Level 9.1 mg/dL (8.5-10.1) Magnesium Level 2.4 mg/dL (1.8-2.4) Total Bilirubin 0.4 mg/dL (0.2-1.0) Aspartate Amino Transf (AST/SGOT) 325 U/L (15-37) Alanine Aminotransferase (ALT/SGPT) 448 U/L (16-63) Alkaline Phosphatase 104 U/L (46-116) Creatine Kinase 329 U/L (39-308) Creatine Kinase MB (Mass) 4.1 ng/mL (0.0-3.6) Creatine Kinase MB Relative Index 1.2 % (0-4) Troponin I Quantitative 0.020 ng/mL (0.000-0.055) UZ-Egn-H-Type Natriuretic Peptide 3695 pg/mL (0-449) Total Protein 7.2 g/dL (6.4-8.2) Albumin 3.2 g/dL (3.4-5.0) Albumin/Globulin Ratio 0.8 (1.0-1.7) Urine Collection Type Void Urine Color Yellow Urine Clarity Clear Urine pH 5.5 Urine Specific Calvin 1.015 Urine Protein Negative mg/dL (NEG-TRACE) Urine Glucose (UA) Negative mg/dL (NEG) Urine Ketones (Stick) Negative mg/dL (NEG) Urine Blood Negative (NEG) Urine Nitrite Negative (NEG) Urine Bilirubin Negative (NEG) Urine Urobilinogen Dipstick 0.2 mg/dL (0.2 mg/dL) Urine Leukocyte Esterase Negative (NEG) Urine RBC 0 /HPF (0-2) Urine WBC Occ /HPF (0-4) Urine Squamous Epithelial Cells None /LPF Urine Bacteria 0 /HPF (0-FEW) Urine Hyaline Casts Few /HPF Urine Mucus Slight /LPF Glucose (Fingerstick) 123 mg/dL (70-99) 151 mg/dL (70-99) Test 01/20/17 03:46 01/20/17 04:30 01/20/17 07:30 01/20/17 11:38 Glucose (Fingerstick) 225 mg/dL (70-99) 157 mg/dL (70-99) 249 mg/dL (70-99) Nasal Screen MRSA (PCR) Positive (Negative) Test 01/20/17 13:05 01/20/17 16:00 01/20/17 16:28 01/20/17 19:58 Sodium Level 136 mmol/L (136-145) Potassium Level 4.4 mmol/L (3.5-5.1) Chloride Level 101 mmol/L (98-107) Carbon Dioxide Level 27 mmol/L (21-32) Anion Gap 8 (6-14) Blood Urea Nitrogen 81 mg/dL (8-26) Creatinine 2.3 mg/dL (0.7-1.3) Estimated GFR (Cockcroft-Gault) 27.6 BUN/Creatinine Ratio 35 (6-20) Glucose Level 220 mg/dL (70-99) Uric Acid 8.3 mg/dL (3.5-7.2) Calcium Level 9.3 mg/dL (8.5-10.1) Total Bilirubin 0.5 mg/dL (0.2-1.0) Aspartate Amino Transf (AST/SGOT) 359 U/L (15-37) Alanine Aminotransferase (ALT/SGPT) 511 U/L (16-63) Alkaline Phosphatase 100 U/L (46-116) Creatine Kinase 214 U/L (39-308) Total Protein 7.1 g/dL (6.4-8.2) Albumin 3.0 g/dL (3.4-5.0) Albumin/Globulin Ratio 0.7 (1.0-1.7) Hepatitis A IgM Antibody Negative (Negative) Hepatitis B Surface Antigen Negative (Negative) Hepatitis B Core IgM Antibody Negative (Negative) Hepatitis C Antibody <0.1 s/co ratio Urine Random Sodium <60 mmol/L (Not Estab.) Glucose (Fingerstick) 216 mg/dL (70-99) 245 mg/dL (70-99) Test 01/21/17 05:15 01/21/17 07:37 01/21/17 11:43 01/21/17 17:22 Hemoglobin 12.6 g/dL (13.0-17.5) Sodium Level 140 mmol/L (136-145) Potassium Level 4.1 mmol/L (3.5-5.1) Chloride Level 107 mmol/L (98-107) Carbon Dioxide Level 25 mmol/L (21-32) Anion Gap 8 (6-14) Blood Urea Nitrogen 60 mg/dL (8-26) Creatinine 1.8 mg/dL (0.7-1.3) Estimated GFR (Cockcroft-Gault) 36.7 Glucose Level 151 mg/dL (70-99) Calcium Level 9.2 mg/dL (8.5-10.1) Phosphorus Level 2.9 mg/dL (2.6-4.7) Magnesium Level 2.5 mg/dL (1.8-2.4) Troponin I Quantitative 0.018 ng/mL (0.000-0.055) Albumin 2.8 g/dL (3.4-5.0) Glucose (Fingerstick) 121 mg/dL (70-99) 146 mg/dL (70-99) 162 mg/dL (70-99) Laboratory Tests Test 01/20/17 19:58 01/21/17 05:15 01/21/17 07:37 01/21/17 11:43 Glucose (Fingerstick) 245 mg/dL (70-99) 121 mg/dL (70-99) 146 mg/dL (70-99) Hemoglobin 12.6 g/dL (13.0-17.5) Sodium Level 140 mmol/L (136-145) Potassium Level 4.1 mmol/L (3.5-5.1) Chloride Level 107 mmol/L (98-107) Carbon Dioxide Level 25 mmol/L (21-32) Anion Gap 8 (6-14) Blood Urea Nitrogen 60 mg/dL (8-26) Creatinine 1.8 mg/dL (0.7-1.3) Estimated GFR (Cockcroft-Gault) 36.7 Glucose Level 151 mg/dL (70-99) Calcium Level 9.2 mg/dL (8.5-10.1) Phosphorus Level 2.9 mg/dL (2.6-4.7) Magnesium Level 2.5 mg/dL (1.8-2.4) Troponin I Quantitative 0.018 ng/mL (0.000-0.055) Albumin 2.8 g/dL (3.4-5.0) Test 01/21/17 17:22 Glucose (Fingerstick) 162 mg/dL (70-99) Assessment/Plan Assessment/Plan This patient with a known cardiac history comes in developed renal failure and hypoglycemia. From a cardiac standpoint he appears to be compensated now and presently the pacemaker seems to be working normally however there was a reported episode of bradycardia and therefore I'm going to check the pacemaker and continue to monitor the patient while he is in the hospital. Thank you very much for asking me to participate in the care of this patient RASHAWN SALGADO MD Jan 21, 2017 19:44
[2017-01-21] MEDS: DOCUSATE SODIUM 100 MG CAPSULE. PO SCH (21:00)
[2017-01-21] MEDS: TAMSULOSIN 0.4 MG CAP.ER.24H. PO SCH (21:15)
[2017-01-21] MEDS: ATORVASTATIN CALCIUM 40 MG TABLET. PO SCH (21:15)
[2017-01-21] MEDS: QUEtiapine 25 MG TABLET. PO SCH (21:16)
[2017-01-21] MEDS: DONEPEZIL HCL 10 MG TABLET. PO SCH (21:16)
[2017-01-21] MEDS: INSULIN DETEMIR 300 UNITS/3 ML INSULN.PEN. SQ SCH (21:24)
[2017-01-21 23:25] VITALS: BP 133/68
[2017-01-22 03:25] VITALS: BP 120/64
[2017-01-22 04:43] LABS: BASO # 0.1 x10^3/uL (0.0-0.2); BASO % 1 % (0-3); EOS % 4 % (0-3); HEMOGLOBIN 12.5 g/dL (13.0-17.5); LYMPH % 12 % (24-48); MEAN CORPUSCULAR HEMOGLOBIN 30 pg (25-35); MEAN CORPUSCULAR HGB CONC 33 g/dL (31-37); MEAN CORPUSCULAR VOLUME 91 fL (79-100); MONO % 16 % (0-9); NEUT % 68 % (31-73); PLATELET COUNT 127 x10^3/uL (140-400); RED BLOOD COUNT 4.18 x10^6/uL (4.30-5.70); RED CELL DISTRIBUTION WIDTH 14.6 % (11.5-14.5); WHITE BLOOD COUNT 8.2 x10^3/uL (4.0-11.0)
[2017-01-22 06:00] LABS: ALBUMIN 2.8 g/dL (3.4-5.0); CALCIUM 9.2 mg/dL (8.5-10.1); CREATININE 1.5 mg/dL (0.7-1.3); GFR 45.3; MAGNESIUM 2.3 mg/dL (1.8-2.4); PHOSPHORUS 2.2 mg/dL (2.6-4.7); POTASSIUM 3.9 mmol/L (3.5-5.1)
[2017-01-22 07:00] VITALS: BP 115/73
--- NOTE | 2017-01-22 07:52 | PDOC ---
SUBJECTIVE Subjective Pt says he is feeling lousy this morning because his ribs hurts. Otherwise doing well. Denies chest pain, shortness of air, and stomach pain has resolved. OBJECTIVE Vital Signs Vital Signs Date Time Temp Pulse Resp B/P (MAP) Pulse Ox O2 Delivery O2 Flow Rate FiO2 01/22/17 03:25 98.4 64 18 120/64 (82) 94 Room Air 98.4 01/21/17 23:25 98.3 66 20 133/68 (89) 94 Nasal Cannula 2.0 98.3 01/21/17 20:00 Nasal Cannula 2.0 01/21/17 19:25 98.2 64 20 94/67 (76) 94 Nasal Cannula 2.0 98.2 01/21/17 19:11 20 97 Nasal Cannula 2.0 01/21/17 18:11 20 98 Nasal Cannula 2.0 01/21/17 17:49 64 149/49 01/21/17 15:00 97.8 64 18 149/49 (82) 98 Nasal Cannula 2.0 97.8 01/21/17 10:55 97.2 61 18 139/72 (94) 98 Nasal Cannula 2.0 97.2 01/21/17 10:49 19 99 Nasal Cannula 2.0 01/21/17 09:22 55 121/71 01/21/17 08:00 Nasal Cannula 2.0 01/21/17 08:00 55 121/71 I & O Intake and Output 01/22/17 07:00 Intake Total 2120 ml Output Total 1900 ml Balance 220 ml Intake Oral 1120 ml IV Total 1000 ml Output Urine Total 1900 ml PHYSICAL EXAM Physical Exam GENERAL: The patient is alert and oriented to person and place. NAD HEENT: EDMAR, EOMI, sclerae clear, MMM NECK: Supple, without lymphadenopathy. CHEST: Clear to auscultation with normal respiratory effort. CARDIOVASCULAR: Regular rhythm with systolic ejection murmur ABDOMEN: Soft, normoactive bowel sounds are present, NTTP EXTREMITIES: Without edema/erythema NUERO: CN2-12 GI ASSESSMENT/PLAN Assessment/Plan Pt is a 76yo CM admitted for generalized weakness and acute on chronic renal failure 1. Acute renal failure with CKD III - lab significantly worsened from baseline at admission. Resolved with IVF hydration, nephrology following. 2. hypoglycemia with DM2 - pt's insulin currently decreased. Glucose on admission was 50, recent HbA1C in the office was 8.3. Currently receiving Levemir 30 units and started on 4 units Novolog [facility] with SSI. Blood sugars have been very well controlled over the last 24 hours. 3. Hx CHF, CAD and Cardiomyopathy - patient has seen Dr Gaming for these conditions but may not have been seen in the past year per his office chart. Diuretics on hold due to renal failure, continuing his other cardiac meds. Consult with Dr Gaming pending. Troponin slightly elevated, but repeat was normal and patient denies symptoms. Continue Amiodarone, Xarelto. Would like to discharge pt today and considering decreasing Lasix down to 40mg qday as opposed to BID on discharge, appreciate cardiology recommendations 4. Elevated LFT's - not seen on previous lab in our office. History of Hepatitis but hepatitis screen WNL. Will get repeat liver enzymes. If still elevated will consult GI as patient is complaining of "right rib pain". 5. Abdominal pain- CT Abdomen essentially normal, other than showing compression fracture in thoracic spine, pt not complaining of pain. 6. HTN - will plan on DC'ing HCTZ, Lisinopril and Spironolactone on discharge. Continue Carvedilol 12.5mg BID 6. dementia - continue Namenda,Donepezil, Seroquel 7. debility - therapies ordered for evaluation 8. HLD- continue Atorvastatin 80mg 9. Chronic pain- continue Tramadol and Lyrica 10. GERD- continue Pantoprazole 11. Leukocytosis- no symptoms of active infection, resolved 12. PEM- moderate 13. Enlarged prostate- seen on U/S. PSA ordered and pending. Pt started on Flomax by renal Disposition: If pt's LFTs are decreasing would like to try and discharge to SNU today if possible and if consultants are in agreeance Problems: COMMENT Lab Laboratory Tests Test 01/21/17 07:37 01/21/17 11:43 01/21/17 17:22 01/22/17 04:15 Glucose (Fingerstick) 121 mg/dL (70-99) 146 mg/dL (70-99) 162 mg/dL (70-99) White Blood Count 8.2 x10^3/uL (4.0-11.0) Red Blood Count 4.18 x10^6/uL (4.30-5.70) Hemoglobin 12.5 g/dL (13.0-17.5) Hematocrit 38.0 % (39.0-53.0) Mean Corpuscular Volume 91 fL (79-100) Mean Corpuscular Hemoglobin 30 pg (25-35) Mean Corpuscular Hemoglobin Concent 33 g/dL (31-37) Red Cell Distribution Width 14.6 % (11.5-14.5) Platelet Count 127 x10^3/uL (140-400) Neutrophils (%) (Auto) 68 % (31-73) Lymphocytes (%) (Auto) 12 % (24-48) Monocytes (%) (Auto) 16 % (0-9) Eosinophils (%) (Auto) 4 % (0-3) Basophils (%) (Auto) 1 % (0-3) Neutrophils # (Auto) 5.5 x10^3uL (1.8-7.7) Lymphocytes # (Auto) 1.0 x10^3/uL (1.0-4.8) Monocytes # (Auto) 1.3 x10^3/uL (0.0-1.1) Eosinophils # (Auto) 0.3 x10^3/uL (0.0-0.7) Basophils # (Auto) 0.1 x10^3/uL (0.0-0.2) Sodium Level 143 mmol/L (136-145) Potassium Level 3.9 mmol/L (3.5-5.1) Chloride Level 108 mmol/L (98-107) Carbon Dioxide Level 25 mmol/L (21-32) Anion Gap 10 (6-14) Blood Urea Nitrogen 41 mg/dL (8-26) Creatinine 1.5 mg/dL (0.7-1.3) Estimated GFR (Cockcroft-Gault) 45.3 Glucose Level 119 mg/dL (70-99) Calcium Level 9.2 mg/dL (8.5-10.1) Phosphorus Level 2.2 mg/dL (2.6-4.7) Magnesium Level 2.3 mg/dL (1.8-2.4) Albumin 2.8 g/dL (3.4-5.0) OTTONIEL STEARNS MD Jan 22, 2017 07:51
[2017-01-22] MEDS: INSULIN ASPART 300 UNITS/3 ML INSULN.PEN SQ SCH ×6 (08:00→17:00)
[2017-01-22] MEDS: PREGABALIN 75 MG CAPSULE PO SCH ×2 (08:27→20:37)
[2017-01-22] MEDS: PANTOPRAZOLE 40 MG TABLET.DR. PO SCH (08:27)
[2017-01-22] MEDS: FERROUS SULFATE 325 MG TABLET. PO SCH (08:27)
[2017-01-22] MEDS: ASCORBIC ACID 500 MG TABLET PO SCH (08:27)
[2017-01-22] MEDS: CHOLECALCIFEROL (VITAMIN D3) 1,000 UNIT TABLET PO SCH (08:27)
[2017-01-22] MEDS: CETIRIZINE HCL 10 MG TABLET. PO SCH (08:28)
[2017-01-22] MEDS: MEMANTINE 10 MG TABLET. PO SCH ×2 (08:28→20:36)
[2017-01-22] MEDS: ASPIRIN ENTERIC COATED 81 MG TABLET.DR. PO SCH (08:28)
[2017-01-22] MEDS: AMIODARONE HCL 200 MG TABLET. PO SCH (08:28)
[2017-01-22] MEDS: CARVEDILOL 12.5 MG TABLET. PO SCH ×2 (08:29→18:17)
[2017-01-22 09:11] LABS: ALBUMIN 2.8 g/dL (3.4-5.0); DIRECT BILIRUBIN 0.2 mg/dL (0.0-0.2); TOTAL BILIRUBIN 0.5 mg/dL (0.2-1.0); TOTAL PROTEIN 6.8 g/dL (6.4-8.2)
[2017-01-22] MEDS: ANTI-COAG MONITOR BY PHARMACY. MC PRN (10:44)
[2017-01-22] MEDS: traMADol 50 MG TABLET PO PRN (11:04)
[2017-01-22 15:00] VITALS: BP 133/76
--- NOTE | 2017-01-22 17:31 | CARD ---
APPROVED REPORT EXAM: Two-dimensional and M-mode echocardiogram with Doppler and color Doppler. Other Information Quality : Good INDICATION Hypertension/HCVD Cardiac Disease: CAD Congestive Heart Failure Surgery/Intervention ICD/Pacemaker: 2D DIMENSIONS RVDd3.1 (2.9-3.5cm)Left Atrium(2D)3.7 (1.6-4.0cm) IVSd1.2 (0.7-1.1cm)Aortic Root(2D)3.2 (2.0-3.7cm) LVDd5.5 (3.9-5.9cm)LVOT Diameter2.1 (1.8-2.4cm) PWd1.1 (0.7-1.1cm)LVDs4.9 (2.5-4.0cm) FS (%) 10.5 %SV33.0 ml LVEF(%)25.0 (>50%) Aortic Valve AoV Peak Micha.270.2cm/sAoV VTI49.3cm AO Peak GR.29.2mmHgLVOT Peak Micha.84.1cm/s AO Mean GR.14mmHgAVA (VMAX)1.12cm2 ELIN (VTI)1.20cm2 Mitral Valve MV E Nasmgmvn257.4cm/sMV DECEL [id number] MV A Velocity0.1cm/sE/A Suzpc7979.0 Tricuspid Valve TR P. Gasbmjwu549vw/sRAP [id number] TR Peak Gr.[id number] LEFT VENTRICLE The left ventricle is normal size. There is mild concentric left ventricular hypertrophy. The Ejectio n Fraction is 25%. There is global hypokinesis of the left ventricle. RIGHT VENTRICLE The right ventricle is mildly dilated. Systolic function is mildly reduced. There is a pacemaker lead in the right ventricle. ATRIA The left atrium size is normal. The right atrium is mildly dilated. A pacemaker is seen in the right atrium consistent with history. The interatrial septum is intact with no evidence for an atrial septa l defect or patent foramen ovale as noted on 2-D or Doppler imaging. AORTIC VALVE The aortic valve is calcified and displays decreased opening. Doppler and Color Flow revealed no sign ificant aortic regurgitation. Calculated aortic valve area is 1.2 cm2 with maximum pressure gradient of 29 mmHg and mean pressure gradient of 14 mmHg. Doppler and color-flow analysis revealed mild to mo derate aortic stenosis. MITRAL VALVE The mitral valve is calcified but opens well. Mitral annular calcification is mild. There is no evide nce of mitral valve prolapse. There is no mitral valve stenosis. Doppler and Color-flow revealed mild mitral regurgitation. TRICUSPID VALVE The tricuspid valve is normal in structure Doppler and Color Flow revealed moderate tricuspid regurgi tation. There is severe pulmonary hypertension. The PA pressure was estimated at 72 mmHg. There is no tricuspid valve stenosis. PULMONIC VALVE The pulmonary valve is normal in structure Doppler and Color Flow revealed mild pulmonic valvular reg urgitation. There is no pulmonic valvular stenosis. GREAT VESSELS The aortic root is normal in size. The ascending aorta is normal in size. The IVC is normal in size a nd collapses >50% with inspiration. PERICARDIAL EFFUSION There is no evidence of significant pericardial effusion. Critical Notification Critical Value: No <Conclusion> The Ejection Fraction is 25%. There is mild concentric left ventricular hypertrophy. The left atrium size is normal. The right atrium is mildly dilated. A pacemaker is seen in the right atrium consistent with history. Calculated aortic valve area is 1.2 cm2 with maximum pressure gradient of 29 mmHg and mean pressure g radient of 14 mmHg. Doppler and color-flow analysis revealed mild to moderate aortic stenosis. The aortic valve is calcified and displays decreased opening. Doppler and Color-flow revealed mild mitral regurgitation. The mitral valve is calcified but opens well. Mitral annular calcification is mild. Doppler and Color Flow revealed moderate tricuspid regurgitation. There is severe pulmonary hypertension. The PA pressure was estimated at 72 mmHg. Doppler and Color Flow revealed mild pulmonic valvular regurgitation. There is no evidence of significant pericardial effusion.
[2017-01-22] MEDS: RIVAROXABAN 15 MG TABLET. PO SCH (18:15)
[2017-01-22 19:20] VITALS: BP 150/75
[2017-01-22] MEDS: ATORVASTATIN CALCIUM 40 MG TABLET. PO SCH (20:35)
[2017-01-22] MEDS: DOCUSATE SODIUM 100 MG CAPSULE. PO SCH (20:35)
[2017-01-22] MEDS: TAMSULOSIN 0.4 MG CAP.ER.24H. PO SCH (20:35)
[2017-01-22] MEDS: QUEtiapine 25 MG TABLET. PO SCH (20:36)
[2017-01-22] MEDS: DONEPEZIL HCL 10 MG TABLET. PO SCH (20:36)
[2017-01-22] MEDS: INSULIN DETEMIR 300 UNITS/3 ML INSULN.PEN. SQ SCH (20:51)
[2017-01-22 23:20] VITALS: BP 155/71
[2017-01-23] MEDS: traMADol 50 MG TABLET PO PRN (01:27)
[2017-01-23 03:20] VITALS: BP 156/73
[2017-01-23 05:16] LABS: FREE PSA/PSA RATIO 24.7 % (.); PSA FREE 0.37 ng/mL; PSA TOTAL 1.5 ng/mL (0.0-4.0)
[2017-01-23 05:40] LABS: ALBUMIN 2.7 g/dL (3.4-5.0); CALCIUM 9.4 mg/dL (8.5-10.1); CREATININE 1.3 mg/dL (0.7-1.3); GFR 53.4; MAGNESIUM 2.1 mg/dL (1.8-2.4); PHOSPHORUS 2.2 mg/dL (2.6-4.7); POTASSIUM 3.8 mmol/L (3.5-5.1)
[2017-01-23 06:58] VITALS: BP 146/85
[2017-01-23] MEDS: INSULIN ASPART 300 UNITS/3 ML INSULN.PEN SQ SCH ×5 (07:30→13:39)
[2017-01-23] MEDS: AMIODARONE HCL 200 MG TABLET. PO SCH (08:10)
[2017-01-23] MEDS: CHOLECALCIFEROL (VITAMIN D3) 1,000 UNIT TABLET PO SCH (08:14)
[2017-01-23] MEDS: CETIRIZINE HCL 10 MG TABLET. PO SCH (08:14)
[2017-01-23] MEDS: ASPIRIN ENTERIC COATED 81 MG TABLET.DR. PO SCH (08:14)
[2017-01-23] MEDS: FERROUS SULFATE 325 MG TABLET. PO SCH (08:14)
[2017-01-23] MEDS: PREGABALIN 75 MG CAPSULE PO SCH (08:14)
[2017-01-23] MEDS: MEMANTINE 10 MG TABLET. PO SCH (08:15)
[2017-01-23] MEDS: PANTOPRAZOLE 40 MG TABLET.DR. PO SCH (08:15)
[2017-01-23] MEDS: CARVEDILOL 12.5 MG TABLET. PO SCH (08:15)
[2017-01-23] MEDS: ASCORBIC ACID 500 MG TABLET PO SCH (08:15)
--- NOTE | 2017-01-23 08:50 | PDOC3 ---
Discharge Summary* Date of Admission: Jan 20, 2017 Date of Discharge: Jan 23, 2017 Admitting Diagnosis Problems Medical Problems: (1) Acute on chronic renal insufficiency Status: Acute (2) Generalized weakness Status: Acute (3) Hypoglycemia Status: Acute Problems: Final Diagnosis Acute renal failure with CKD III, DM2 with hypoglycemia on admission, CHF- RV and LV systolic dysfunction compensated, Cardiomyopathy, Pulmonary Hypertension , Elevated LFTs, Compression fracture, HTN, Dementia, Debility, HLD, Chronic Pain, GERD, Leukocytosis-resolved, PEM-moderate, Enlarged Prostate CONSULTS Nephrology Cardiology Procedures CXR- mild perihilar interstitial opacities, may be 2/2 poor inspiratory effort vs mild edema Abdominal U/S- no acute sonographic finding, prominent prostate CT Abdomen- bilateral renal cortical scarring with minimal bilateral perinephric edema. Mild T9 vertebrae compression fracture ECHO- mild concentric LVH, LVEF 25%, global hypokinesis LV, RV mildly dilated. Systolic function mildly decreased. Pacemaker seen RV. RA mildly dilated. Aortic valve calcified with decreased opening; mild to moderate aortic stenosis. Moderate tricuspid regurgitation. Severe pulmonary HTN Brief Hospital Course DISCHARGE PHYSICAL EXAM GENERAL: The patient is alert and oriented to person and place. NAD HEENT: EDMAR, EOMI, sclerae clear, MMM NECK: Supple, without lymphadenopathy. CHEST: Clear to auscultation with normal respiratory effort. CARDIOVASCULAR: Regular rhythm with systolic ejection murmur ABDOMEN: Soft, normoactive bowel sounds are present, NTTP EXTREMITIES: Without edema/erythema NUERO: CN2-12 GI Pt is a 76yo CM admitted for generalized weakness and acute on chronic renal failure 1. Acute renal failure with CKD III - lab significantly worsened on admission from baseline. Resolved with IVF hydration, nephrology following. 2. hypoglycemia with DM2 - Pt's insulin decreased to Levemir 30 units and Novolog 4 units QAC. BS much better controlled. Recent HbA1C in the office was 8.3. 3. Hx CHF, CAD and Cardiomyopathy - Dr. Gaming following during admission. Diuretics were held during admission 2/2 renal failure, will decreased dose of Lasix to 40mg daily on discharge which Cardiology is agreeable with. Troponin slightly elevated on admission, but repeat was normal and patient denies symptoms. Continue Amiodarone, Xarelto. 4. Elevated LFT's - not seen on previous lab in our office. History of Hepatitis but hepatitis screen WNL. Will have pt f/u with GI outpatient. 5. Abdominal pain- CT Abdomen essentially normal, other than showing compression fracture in thoracic spine, pt not complaining of pain. Will have pt f/u with neurosurgery outpatient for compression fracture. Was not c/o back pain during entire admission until morning of discharge 6. HTN - DC'ing HCTZ, Lisinopril and Spironolactone on discharge. Continue Carvedilol 12.5mg BID 6. dementia - continue Namenda,Donepezil, Seroquel 7. debility - therapies ordered for evaluation 8. HLD- continue Atorvastatin 80mg 9. Chronic pain- continue Tramadol and Lyrica 10. GERD- continue Pantoprazole 11. Leukocytosis- no symptoms of active infection, resolved 12. PEM- moderate 13. Enlarged prostate- seen on U/S. PSA ordered and pending. Pt started on Flomax by renal Disposition/Orders: D/C to Another Facility CONDITION AT DISCHARGE: Improved, Stable Diet: 2 gr sodium, Consistent Carbohydrate Scheduled Amiodarone Hcl (Amiodarone Hcl), 1 TAB PO BID, (Reported) Ascorbic Acid (Vitamin C), 500 MG PO DAILY, (Reported) Aspirin (Aspir 81), 1 TAB PO DAILY, (Reported) Atorvastatin Calcium (Atorvastatin Calcium), 1 TAB PO DAILY, (Reported) Carvedilol (Carvedilol), 1 TAB PO BID, (Reported) Cetirizine Hcl (Zyrtec), 1 TAB PO DAILY, (Reported) Cholecalciferol (Vitamin D3) (Vitamin D3), 2 TAB PO DAILY, (Reported) Diclofenac Sodium (Voltaren), 1 GM TP BID, (Reported) Docusate Sodium (Colace), 250 MG PO DAILY, (Reported) Donepezil Hcl (Aricept), 1 TAB PO QHS, (Reported) Ferrous Sulfate (Ferrous Sulfate), 1 TAB PO DAILY, (Reported) Furosemide (Furosemide), 40 MG PO BID, (Reported) Hydrochlorothiazide (Hydrochlorothiazide Capsule ), 12.5 MG PO DAILY, ( Reported) Lisinopril (Lisinopril), 1 TAB PO BID, (Reported) Memantine Hcl (Namenda Xr), 28 MG PO HS, (Reported) Omeprazole (Omeprazole), 1 CAP PO DAILY, (Reported) Potassium Chloride (Potassium Chloride), 10 MEQ PO BID Pregabalin (Lyrica), 1 CAP PO BID, (Reported) Quetiapine Fumarate (Seroquel), 1 TAB PO QHS, (Reported) Rivaroxaban (Xarelto), 15 MG PO DAILY, (Reported) Spironolactone (Spironolactone), 12.5 MG PO DAILY, (Reported) Vitamin E Mixed (Vitamin E), 400 UNIT PO DAILY, (Reported) Miscellaneous Medications Insulin Detemir (Levemir), 45 UNIT SQ, (Reported) Melatonin/Pyridoxine Hcl (B6) (Melatonin 10 Mg Tablet), 1 EACH PO, (Reported) [humalog], (Reported) PCP Follow up with Dr. Stearns 7-10 days after being discharged from SNF. Will put in referral for GI and Neurosurgery follow up. Time Spent Total time spent with patient [] minutes for coordination of care, counseling, and education. OTTONIEL STEARNS MD Jan 23, 2017 08:50
--- NOTE | 2017-01-23 10:16 | PDOC ---
PROGRESS NOTES Subjective Subjective No acute events overnight. Patient improving symptomatically. Denies chest pain/ discomfort, LE swelling, or other cardiac symptoms. Plan for d/c to SNU. No additional concerns at this time. Objective Objective Vital Signs Date Time Temp Pulse Resp B/P (MAP) Pulse Ox O2 Delivery O2 Flow Rate FiO2 01/23/17 08:15 65 146/85 01/23/17 06:58 98.0 18 92 Room Air 98.0 01/22/17 14:09 2.0 Intake and Output 01/23/17 07:00 Intake Total 950 ml Output Total 700 ml Balance 250 ml Intake Oral 950 ml Output Urine Total 700 ml # Voids 2 Physical Exam COMMENT Awake, Alert, Oriented In No Acute Distress Lungs- CTAB Cardiac- No change in cardiac exam. RRR with systolic ejection murmur No LE edema Assessment Assessment Problems Medical Problems: (1) Acute on chronic renal insufficiency Status: Acute (2) Generalized weakness Status: Acute (3) Hypoglycemia Status: Acute Plan Plan of Care Patient is compensated well- cardiac smith. Pacemaker working normally. Troponin negative, patient asymptomatic. Echo performed and revealed mild concentric L ventricular hypertrophy, decreased EF (25%), global L ventricle hypokinesis, Decrease R ventricular systolic function, mid-moderate aortic stenosis, mild mitral regurgitation, mod tricuspid regurgitation, mild pulmonary regurgitation , and severe pulmonary HTN. Recommend patient following up in my cardiology clinic. Continue current Amniodarone, Xarelto, Carvedilol, Atorvastatin, and Aspirin after d/c. Agree with plan to send patient home with decreased dose of Lasix 40mg qday with patient precautions to call office if increased SOB or LE edema. Also agre with plan to d/c HCTZ, Lisinopril, and Spironolactone. As patient is stable cardiac- smith, agree with sending patient to SNU or specialty facility once medically stable and proper arrangements have been made. Comment Review of Relevant I have reviewed the following items kiana (where applicable) has been applied. Labs Laboratory Tests Test 01/21/17 11:43 01/21/17 17:22 01/22/17 04:15 01/22/17 07:13 Glucose (Fingerstick) 146 mg/dL (70-99) 162 mg/dL (70-99) 101 mg/dL (70-99) White Blood Count 8.2 x10^3/uL (4.0-11.0) Red Blood Count 4.18 x10^6/uL (4.30-5.70) Hemoglobin 12.5 g/dL (13.0-17.5) Hematocrit 38.0 % (39.0-53.0) Mean Corpuscular Volume 91 fL (79-100) Mean Corpuscular Hemoglobin 30 pg (25-35) Mean Corpuscular Hemoglobin Concent 33 g/dL (31-37) Red Cell Distribution Width 14.6 % (11.5-14.5) Platelet Count 127 x10^3/uL (140-400) Neutrophils (%) (Auto) 68 % (31-73) Lymphocytes (%) (Auto) 12 % (24-48) Monocytes (%) (Auto) 16 % (0-9) Eosinophils (%) (Auto) 4 % (0-3) Basophils (%) (Auto) 1 % (0-3) Neutrophils # (Auto) 5.5 x10^3uL (1.8-7.7) Lymphocytes # (Auto) 1.0 x10^3/uL (1.0-4.8) Monocytes # (Auto) 1.3 x10^3/uL (0.0-1.1) Eosinophils # (Auto) 0.3 x10^3/uL (0.0-0.7) Basophils # (Auto) 0.1 x10^3/uL (0.0-0.2) Sodium Level 143 mmol/L (136-145) Potassium Level 3.9 mmol/L (3.5-5.1) Chloride Level 108 mmol/L (98-107) Carbon Dioxide Level 25 mmol/L (21-32) Anion Gap 10 (6-14) Blood Urea Nitrogen 41 mg/dL (8-26) Creatinine 1.5 mg/dL (0.7-1.3) Estimated GFR (Cockcroft-Gault) 45.3 Glucose Level 119 mg/dL (70-99) Calcium Level 9.2 mg/dL (8.5-10.1) Phosphorus Level 2.2 mg/dL (2.6-4.7) Magnesium Level 2.3 mg/dL (1.8-2.4) Total Bilirubin 0.5 mg/dL (0.2-1.0) Direct Bilirubin 0.2 mg/dL (0.0-0.2) Aspartate Amino Transf (AST/SGOT) 389 U/L (15-37) Alanine Aminotransferase (ALT/SGPT) 610 U/L (16-63) Alkaline Phosphatase 98 U/L (46-116) Total Protein 6.8 g/dL (6.4-8.2) Albumin 2.8 g/dL (3.4-5.0) Test 01/22/17 12:15 01/22/17 17:13 01/23/17 04:25 01/23/17 07:20 Glucose (Fingerstick) 177 mg/dL (70-99) 98 mg/dL (70-99) 117 mg/dL (70-99) Sodium Level 141 mmol/L (136-145) Potassium Level 3.8 mmol/L (3.5-5.1) Chloride Level 106 mmol/L (98-107) Carbon Dioxide Level 26 mmol/L (21-32) Anion Gap 9 (6-14) Blood Urea Nitrogen 28 mg/dL (8-26) Creatinine 1.3 mg/dL (0.7-1.3) Estimated GFR (Cockcroft-Gault) 53.4 Glucose Level 117 mg/dL (70-99) Calcium Level 9.4 mg/dL (8.5-10.1) Phosphorus Level 2.2 mg/dL (2.6-4.7) Magnesium Level 2.1 mg/dL (1.8-2.4) Albumin 2.7 g/dL (3.4-5.0) Laboratory Tests Test 01/22/17 12:15 01/22/17 17:13 01/23/17 04:25 01/23/17 07:20 Glucose (Fingerstick) 177 mg/dL (70-99) 98 mg/dL (70-99) 117 mg/dL (70-99) Sodium Level 141 mmol/L (136-145) Potassium Level 3.8 mmol/L (3.5-5.1) Chloride Level 106 mmol/L (98-107) Carbon Dioxide Level 26 mmol/L (21-32) Anion Gap 9 (6-14) Blood Urea Nitrogen 28 mg/dL (8-26) Creatinine 1.3 mg/dL (0.7-1.3) Estimated GFR (Cockcroft-Gault) 53.4 Glucose Level 117 mg/dL (70-99) Calcium Level 9.4 mg/dL (8.5-10.1) Phosphorus Level 2.2 mg/dL (2.6-4.7) Magnesium Level 2.1 mg/dL (1.8-2.4) Albumin 2.7 g/dL (3.4-5.0) Medications Current Medications Dextrose 500 ml @ 150 mls/hr 1X ONCE IV Last administered on 01/19/17 23:15 ; Start 01/19/17 at 23:15; Stop 01/20/17 at 02:34; Status DC Sodium Chloride 1,000 ml @ 100 mls/hr Q10H IV Last administered on 01/21/17 07:07; Start 01/20/17 at 11:15; Stop 01/21/17 at 22:01; Status DC Amiodarone HCl (Cordarone) 200 mg BID PO ; Start 01/20/17 at 12:00; Stop at 12:05; Status Cancel Ascorbic Acid (Vitamin C) 500 mg DAILY PO Last administered on 01/23/17 08:15 ; Start 01/20/17 at 12:00 Aspirin (Ecotrin) 81 mg DAILY PO Last administered on 01/23/17 08:14; Start 01/20/17 at 12:00 Carvedilol (Coreg) 12.5 mg BIDWMEALS PO Last administered on 01/23/17 08:15; Start 01/20/17 at 12:00 Cetirizine HCl (ZyrTEC) 10 mg DAILY PO Last administered on 01/23/17 08:14; Start 01/20/17 at 12:00 Vitamin D (Vitamin D3) 2,000 unit DAILY PO Last administered on 01/23/17 08:14 ; Start 01/20/17 at 12:00 Docusate Sodium (Colace) 200 mg QHS PO Last administered on 01/22/17 20:35; Start 01/20/17 at 21:00 Donepezil HCl (Aricept) 10 mg QHS PO Last administered on 01/22/17 20:36; Start 01/20/17 at 21:00 Ferrous Sulfate (Feosol) 325 mg DAILY PO Last administered on 01/23/17 08:14; Start 01/20/17 at 12:00 Pregabalin (Lyrica) 75 mg BID PO Last administered on 01/23/17 08:14; Start 01/20/17 at 12:00 Rivaroxaban (Xarelto) 15 mg DAILYWSUP PO Last administered on 01/22/17 18:15; Start 01/20/17 at 17:00 Atorvastatin Calcium (Lipitor) 80 mg QHS PO Last administered on 01/22/17 20: 35; Start 01/20/17 at 21:00 Memantine (Namenda) 10 mg BID PO Last administered on 01/23/17 08:15; Start 01/20/17 at 12:00 Pantoprazole Sodium (Protonix) 40 mg DAILYAC PO Last administered on 01/23/17 08:15; Start 01/20/17 at 12:00 Quetiapine Fumarate (SEROquel) 50 mg QHS PO Last administered on 01/22/17 20: 36; Start 01/20/17 at 21:00 Insulin Detemir (Levemir) 30 units QHS SQ Last administered on 01/22/17 20:51 ; Start 01/20/17 at 21:00 Insulin Aspart (NovoLOG) 0-7 UNITS TIDWMEALS SQ Last administered on 01/22/17 12:51; Start 01/20/17 at 12:00 Dextrose (Dextrose 50%-Water Syringe) 12.5 gm PRN Q15MIN PRN IV SEE COMMENTS; Start 01/20/17 at 11:45 Amiodarone HCl (Cordarone) 200 mg DAILY PO Last administered on 01/22/17 08:28 ; Start 01/20/17 at 12:30 Magnesium Sulfate/ Dextrose 50 ml @ 25 mls/hr PRN DAILY PRN IV for Mag < 1.7 on am labs; Start 01/20/17 at 12:15 Tramadol HCl (Ultram) 50 mg PRN Q8HRS PRN PO PAIN Last administered on 01:27; Start 01/20/17 at 16:30 Bisacodyl (Dulcolax Supp) 10 mg 1X ONCE MS Last administered on 01/21/17 12: 12; Start 01/21/17 at 08:00; Stop 01/21/17 at 08:01; Status DC Insulin Aspart (NovoLOG) 4 units TIDAC SQ Last administered on 01/22/17 12:50 ; Start 01/21/17 at 11:30 Info (Anti-Coagulation Monitoring By Pharmacy) 1 each PRN DAILY PRN MC SEE COMMENTS Last administered on 01/22/17 10:44; Start 01/21/17 at 11:15 Tamsulosin HCl (Flomax) 0.4 mg QHS PO Last administered on 01/22/17 20:35; Start 01/21/17 at 21:00 Active Scripts Active Potassium Chloride 10 Meq Capsule.er 10 Meq PO BID 30 Days Reported Ferrous Sulfate 325 Mg Tablet 1 Tab PO DAILY [humalog] Levemir (Insulin Detemir) 100 Unit/1 Ml Vial 45 Unit SQ Voltaren (Diclofenac Sodium) 100 Gm Gel..gram. 1 Gm TP BID Zyrtec (Cetirizine Hcl) 10 Mg Tablet 1 Tab PO DAILY Vitamin E (Vitamin E Mixed) 400 Unit Capsule 400 Unit PO DAILY Vitamin D3 (Cholecalciferol (Vitamin D3)) 1,000 Unit Tablet 2 Tab PO DAILY Vitamin C (Ascorbic Acid) 500 Mg Tablet 500 Mg PO DAILY Colace (Docusate Sodium) 100 Mg Capsule 250 Mg PO DAILY Seroquel (Quetiapine Fumarate) 50 Mg Tablet 1 Tab PO QHS Lisinopril 20 Mg Tablet 1 Tab PO BID Hydrochlorothiazide Capsule (Hydrochlorothiazide) 12.5 Mg Capsule 12.5 Mg PO DAILY Furosemide 40 Mg Tablet 40 Mg PO BID Amiodarone Hcl 200 Mg Tablet 1 Tab PO BID Spironolactone 25 Mg Tablet 12.5 Mg PO DAILY Xarelto (Rivaroxaban) 15 Mg Tablet 15 Mg PO DAILY Namenda Xr (Memantine Hcl) 28 Mg Cap.spr.24 28 Mg PO HS Melatonin 10 Mg Tablet (Melatonin/Pyridoxine Hcl (B6)) 1 Each Tab.mphase 1 Each PO Aspir 81 (Aspirin) 81 Mg Tablet.dr 1 Tab PO DAILY Omeprazole 20 Mg Capsule.dr 1 Cap PO DAILY Lyrica (Pregabalin) 75 Mg Capsule 1 Cap PO BID Aricept (Donepezil Hcl) 10 Mg Tablet 1 Tab PO QHS Carvedilol 12.5 Mg Tablet 1 Tab PO BID Atorvastatin Calcium 80 Mg Tablet 1 Tab PO DAILY Vitals/I & O Vital Sign - Last 24 Hours 01/22/17 01/22/17 01/22/17 01/22/17 11:04 14:09 15:00 18:17 Temp 97.9 97.9 Pulse 66 66 Resp 18 B/P (MAP) 133/76 (95) 133/76 Pulse Ox 93 93 95 O2 Delivery Nasal Cannula Nasal Cannula Room Air O2 Flow Rate 2.0 2.0 01/22/17 01/22/17 01/22/17 01/23/17 19:20 20:15 23:20 03:20 Temp 98.3 97.5 98.0 98.3 97.5 98.0 Pulse 65 62 60 Resp 18 18 20 B/P (MAP) 150/75 (100) 155/71 (99) 156/73 (100) Pulse Ox 97 94 93 O2 Delivery Room Air Room Air Room Air Room Air 01/23/17 01/23/17 06:58 08:15 Temp 98.0 98.0 Pulse 65 65 Resp 18 B/P (MAP) 146/85 (105) 146/85 Pulse Ox 92 O2 Delivery Room Air Intake and Output 01/22/17 01/22/17 01/23/17 15:00 23:00 07:00 Intake Total 600 ml 350 ml Output Total 550 ml 150 ml Balance 50 ml 200 ml RASHAWN SALGADO MD Jan 23, 2017 10:16
[2017-01-23 10:50] VITALS: BP 125/78
--- NOTE | 2017-01-23 11:28 | PDOC ---
SUBJECTIVE ROS VARUN Doing much better CVS: no Orthopnea, no CP RESP: no SOB, no MENDEZ GI: no Nausea, no Vomiting : no Dysuria, no Urgency OBJECTIVE Vital Signs Vital Signs Date Time Temp Pulse Resp B/P (MAP) Pulse Ox O2 Delivery O2 Flow Rate FiO2 01/23/17 10:50 98.3 73 18 125/78 (94) 93 Room Air 98.3 01/22/17 14:09 2.0 I & 0 Intake and Output 01/23/17 07:00 Intake Total 950 ml Output Total 700 ml Balance 250 ml Intake Oral 950 ml Output Urine Total 700 ml # Voids 2 PHYSICAL EXAM Physical Exam General Appearance: Awake Alert Oriented x 0-1 In no Distress; baldness Eyes: Sclera Anicteric; Conjunctiva Normal EN: No EN Drainage Mucous Memb. moist Neck: no JVD min JVP Supple no Thyromegaly CVS: S1 S2 ? soft Murmur No Gallop No Rub no Edema Resp: no Rales no Rhonchi no Acc. Muscle use GI: BS +ve NO Bruit Non Tender Non Distended - obese : no CVA tenderness; no Suprapubic Tenderness Assessment & Plan: VARUN - presumably VMN from dehydration, Better with IVF. Creat is close to baseline. CKD III due to HTN and DM and CHF - baseline creat was 1.5 in 07/2015. . Not sure if Cardiac Murmur is contributing so check ECHO to guide fluid admin CHF - cardio reccs ntoed. Would be OK to restart KAITLIN-i - will need closer supervision of his fluid status if diuretics are to be used. Underlying dementia may complicated thinks ^ed LFTs - RUQ Us non-revealing - defer to Dr Nichols - ? GI eval Vol depeltion - much better IVF as ordered; D/tara due to CHF Prostatomegaly - start flomax, pt is urinating well per RN, Bl Scan was not done HTN: Current BP meds reviewed. See orders for changes. Plans for D/c noted COMMENT/RELEVANT DATA Meds Current Medications Medications (Trade) Dose Ordered Sig/Steff Start Time Stop Time Status Last Admin Dose Admin Amiodarone HCl (Cordarone) 200 mg DAILY 01/20/17 12:30 01/22/17 08:28 200 MG Ascorbic Acid (Vitamin C) 500 mg DAILY 01/20/17 12:00 01/23/17 08:15 500 MG Aspirin (Ecotrin) 81 mg DAILY 01/20/17 12:00 01/23/17 08:14 81 MG Atorvastatin Calcium (Lipitor) 80 mg QHS 01/20/17 21:00 01/22/17 20:35 80 MG Bisacodyl (Dulcolax Supp) 10 mg 1X ONCE 01/21/17 08:00 01/21/17 08:01 DC 01/21/17 12:12 10 MG Carvedilol (Coreg) 12.5 mg BIDWMEALS 01/20/17 12:00 01/23/17 08:15 12.5 MG Cetirizine HCl (ZyrTEC) 10 mg DAILY 01/20/17 12:00 01/23/17 08:14 10 MG Dextrose (Dextrose 50%-Water Syringe) 12.5 gm PRN Q15MIN PRN 01/20/17 11:45 Docusate Sodium (Colace) 200 mg QHS 01/20/17 21:00 01/22/17 20:35 200 MG Donepezil HCl (Aricept) 10 mg QHS 01/20/17 21:00 01/22/17 20:36 10 MG Ferrous Sulfate (Feosol) 325 mg DAILY 01/20/17 12:00 01/23/17 08:14 325 MG Info (Anti-Coagulation Monitoring By Pharmacy) 1 each PRN DAILY PRN 01/21/17 11:15 01/22/17 10:44 1 EACH Insulin Aspart (NovoLOG) 4 units TIDAC 01/21/17 11:30 01/22/17 12:50 4 UNITS Insulin Detemir (Levemir) 30 units QHS 01/20/17 21:00 01/22/17 20:51 10 UNITS Magnesium Sulfate/ Dextrose 50 ml @ 25 mls/hr PRN DAILY PRN 01/20/17 12:15 Memantine (Namenda) 10 mg BID 01/20/17 12:00 01/23/17 08:15 10 MG Pantoprazole Sodium (Protonix) 40 mg DAILYAC 01/20/17 12:00 01/23/17 08:15 40 MG Pregabalin (Lyrica) 75 mg BID 01/20/17 12:00 01/23/17 08:14 75 MG Quetiapine Fumarate (SEROquel) 50 mg QHS 01/20/17 21:00 01/22/17 20:36 50 MG Rivaroxaban (Xarelto) 15 mg DAILYWSUP 01/20/17 17:00 01/22/17 18:15 15 MG Sodium Chloride 1,000 ml @ 100 mls/hr Q10H 01/20/17 11:15 01/21/17 22:01 DC 01/21/17 07:07 100 MLS/HR Tamsulosin HCl (Flomax) 0.4 mg QHS 01/21/17 21:00 01/22/17 20:35 0.4 MG Tramadol HCl (Ultram) 50 mg PRN Q8HRS PRN 01/20/17 16:30 01/23/17 01:27 50 MG Vitamin D (Vitamin D3) 2,000 unit DAILY 01/20/17 12:00 01/23/17 08:14 2,000 UNIT Lab Laboratory Tests Test 01/22/17 12:15 01/22/17 17:13 01/23/17 04:25 01/23/17 07:20 Glucose (Fingerstick) 177 mg/dL (70-99) 98 mg/dL (70-99) 117 mg/dL (70-99) Sodium Level 141 mmol/L (136-145) Potassium Level 3.8 mmol/L (3.5-5.1) Chloride Level 106 mmol/L (98-107) Carbon Dioxide Level 26 mmol/L (21-32) Anion Gap 9 (6-14) Blood Urea Nitrogen 28 mg/dL (8-26) Creatinine 1.3 mg/dL (0.7-1.3) Estimated GFR (Cockcroft-Gault) 53.4 Glucose Level 117 mg/dL (70-99) Calcium Level 9.4 mg/dL (8.5-10.1) Phosphorus Level 2.2 mg/dL (2.6-4.7) Magnesium Level 2.1 mg/dL (1.8-2.4) Albumin 2.7 g/dL (3.4-5.0) Test 01/23/17 11:19 Glucose (Fingerstick) 131 mg/dL (70-99) ANDERS MEDELLIN MD Jan 23, 2017 11:28
[2017-01-23] MEDS ORDERED: POTASSIUM PHOSPHATE DIBASIC 13.6 MMOL in IV NORMAL SALINE 100ML 100 ML IV SCH (12:00)
[2017-01-23] MEDS: POTASSIUM PHOSPHATE,MONOBASIC 500 MG TABLET. PO SCH ×2 (12:34→13:21)
== END 2017-01-23 19:00 | DRG 291 ==
LOC: ER 21:54 → 6 SOUTH 23:18
PROVIDERS: ADMIT Family Medicine; ATTEND Family Medicine
DX: I13.0 Hypertensive heart and chronic kidney disease with heart failure and stage 1 through stage 4 chronic kidney disease, or unspecified chronic kidney disease (principal); N17.0 Acute kidney failure with tubular necrosis; E44.0 Moderate protein-calorie malnutrition; E11.22 Type 2 diabetes mellitus with diabetic chronic kidney disease; E11.9 Type 2 diabetes mellitus without complications; D53.9 Nutritional anemia, unspecified; I50.20 Unspecified systolic (congestive) heart failure; M48.50XA Collapsed vertebra, not elsewhere classified, site unspecified, initial encounter for fracture; E11.649 Type 2 diabetes mellitus with hypoglycemia without coma; I07.1 Rheumatic tricuspid insufficiency; E11.42 Type 2 diabetes mellitus with diabetic polyneuropathy; I42.9 Cardiomyopathy, unspecified; D72.829 Elevated white blood cell count, unspecified; E78.5 Hyperlipidemia, unspecified; F03.90 Unspecified dementia, unspecified severity, without behavioral disturbance, psychotic disturbance, mood disturbance, and anxiety; N18.3 Chronic kidney disease, stage 3 (moderate); G89.29 Other chronic pain; K21.9 Gastro-esophageal reflux disease without esophagitis; N40.0 Benign prostatic hyperplasia without lower urinary tract symptoms; M19.90 Unspecified osteoarthritis, unspecified site; I25.10 Atherosclerotic heart disease of native coronary artery without angina pectoris; I27.20 Pulmonary hypertension, unspecified; I35.0 Nonrheumatic aortic (valve) stenosis; Z68.33 Body mass index [BMI] 33.0-33.9, adult; Z79.4 Long term (current) use of insulin; Z87.891 Personal history of nicotine dependence; Z95.0 Presence of cardiac pacemaker; Z95.1 Presence of aortocoronary bypass graft; Z88.6 Allergy status to analgesic agent; Z88.2 Allergy status to sulfonamides; Z90.49 Acquired absence of other specified parts of digestive tract
CPT/HCPCS: 36415; 71010; 74150; 76700; 80053; 80069; 80074; 80076; 81001; 82550; 82553; 82962; 83735; 83880; 84153; 84154; 84300; 84484; 84550; 85018; 85025; 87641; 93005; 93306; J1815; J7030; 97116; 97530; 97535; 99285-25

== ENCOUNTER → 2017-03-11 | Outpatient (CLI) | payer MEDICARE, OTHER ==
[2017-03-11 15:13] LABS: ANION GAP 9 (6-14); BLOOD UREA NITROGEN 46 mg/dL (8-26); CALCIUM 8.6 mg/dL (8.5-10.1); CARBON DIOXIDE 29 mmol/L (21-32); CHLORIDE 101 mmol/L (98-107); CREATININE 2.1 mg/dL (0.7-1.3); GFR 30.7; GLUCOSE 211 mg/dL (70-99); POTASSIUM 3.1 mmol/L (3.5-5.1); SODIUM 139 mmol/L (136-145)
== END | disposition home or self-care (01) ==
LOC: SPEC 14:40
DX: I13.0 Hypertensive heart and chronic kidney disease with heart failure and stage 1 through stage 4 chronic kidney disease, or unspecified chronic kidney disease (principal); I50.9 Heart failure, unspecified; N18.3 Chronic kidney disease, stage 3 (moderate)
CPT/HCPCS: 36415; 80048

== ENCOUNTER 2017-03-22 19:14 | Inpatient (IN) | payer MEDICARE, OTHER ==
[2017-03-22] MEDS: IPRATRPIUM/ALBUTEROL 0.5/2.5MG 3 ML NEBU. NEB (20:16)
[2017-03-22] MEDS: PROMETH/CODEINE 6.25/10MG 5 ML SYRUP. PO (20:32)
[2017-03-22] MEDS: AZITHROMYCIN 250 MG TABLET. PO (20:33)
[2017-03-22] MEDS: methylPREDNISolone SOD SUCC PF 125 MG/2 ML VIAL. IV (21:05)
[2017-03-22 21:37] LABS: ADD MAN DIFF? NO
[2017-03-22 21:40] LABS: BASO # 0.1 x10^3/uL (0.0-0.2); BASO % 1 % (0-3); EOS # 0.2 x10^3/uL (0.0-0.7); EOS % 2 % (0-3); HEMOGLOBIN 13.4 g/dL (13.0-17.5); INFLUENZA A PATIENT NEGATIVE (NEGATIVE); INFLUENZA B PATIENT NEGATIVE (NEGATIVE); LYMPH # 0.9 x10^3/uL (1.0-4.8); LYMPH % 10 % (24-48); MEAN CORPUSCULAR HEMOGLOBIN 30 pg (25-35); MEAN CORPUSCULAR HGB CONC 33 g/dL (31-37); MEAN CORPUSCULAR VOLUME 90 fL (79-100); MONO # 1.3 x10^3/uL (0.0-1.1); MONO % 13 % (0-9); NEUT # 7.3 x10^3uL (1.8-7.7); NEUT % 75 % (31-73); OBC FLU VALID; PLATELET COUNT 138 x10^3/uL (140-400); RED BLOOD COUNT 4.47 x10^6/uL (4.30-5.70); RED CELL DISTRIBUTION WIDTH 14.5 % (11.5-14.5); WHITE BLOOD COUNT 9.8 x10^3/uL (4.0-11.0)
[2017-03-22 22:01] LABS: ANION GAP 10 (6-14); BLOOD UREA NITROGEN 31 mg/dL (8-26); BUN/CREATININE RATIO 19 (6-20); CALCIUM 8.9 mg/dL (8.5-10.1); CARBON DIOXIDE 29 mmol/L (21-32); CHLORIDE 100 mmol/L (98-107); CREATININE 1.6 mg/dL (0.7-1.3); GLUCOSE 159 mg/dL (70-99); SODIUM 139 mmol/L (136-145)
[2017-03-22 22:07] LABS: ALBUMIN 2.9 g/dL (3.4-5.0); ALBUMIN/GLOBULIN RATIO 0.8 (1.0-1.7); ALK PHOS 98 U/L (46-116); ALT (SGPT) 243 U/L (16-63); AST (SGOT) 244 U/L (15-37); TOTAL BILIRUBIN 0.5 mg/dL (0.2-1.0); TOTAL PROTEIN 6.7 g/dL (6.4-8.2)
[2017-03-22 22:08] LABS: TROPONINI 0.056 ng/mL (0.000-0.055)
[2017-03-22 22:11] LABS: NT-PRO BNP 2442 pg/mL (0-449)
[2017-03-22] MEDS: ASPIRIN CHEWABLE 81 MG TABLET. PO (22:29)
[2017-03-22] MEDS: NITROGLYCERIN OINT 1 GM PACKET. TP (22:31)
[2017-03-22] MEDS: FUROSEMIDE 40 MG/4 ML VIAL. IVP (22:31)
[2017-03-22] MEDS ORDERED: NITROGLYCERIN SUBLINGUAL 0.4 MG BOTTLE OF 25. SL (23:30)
[2017-03-22] MEDS ORDERED: ACETAMINOPHEN 325 MG TABLET. PO (23:30)
[2017-03-22 23:38] LABS: BILIRUBIN,URINE NEGATIVE (NEG); CLARITY,URINE CLEAR; COLOR,URINE YELLOW; GLUCOSE,URINE NEGATIVE (NEG); NITRITE,URINE NEGATIVE (NEG); PROTEIN,URINE NEGATIVE (NEG-TRACE)
[2017-03-22 23:43] LABS: BACTERIA,URINE 0 /HPF (0-FEW); HYALINE CASTS, URINE FEW /HPF; RBC,URINE 0 /HPF (0-2); SQUAMOUS EPITHELIAL CELL,UR OCC /LPF; WBC,URINE 0 /HPF (0-4)
[2017-03-23] MEDS: POTASSIUM CHLORIDE 20 MEQ TABLET.ER. PO (00:33)
[2017-03-23 06:12] LABS: TROPONINI 0.059 ng/mL (0.000-0.055)
[2017-03-23 08:23] LABS: POC GLUCOSE 212 mg/dL (70-99)
[2017-03-23] MEDS: IPRATRPIUM/ALBUTEROL 0.5/2.5MG 3 ML NEBU. NEB ×4 (09:40→19:27)
[2017-03-23 11:23] LABS: POC GLUCOSE 254 mg/dL (70-99)
[2017-03-23] MEDS: LACTOBACILLUS RHAMNOSUS GG 1 CAPSULE. PO ×2 (15:04→20:33)
[2017-03-23] MEDS: FUROSEMIDE 40 MG/4 ML VIAL. IVP (15:05)
[2017-03-23] MEDS: cefTRIAXone IV Push 1 GM VIAL. IVP (15:05)
[2017-03-23 16:02] LABS: POC GLUCOSE 219 mg/dL (70-99)
[2017-03-23 21:24] LABS: POC GLUCOSE 166 mg/dL (70-99)
[2017-03-23] MEDS: BENZONATATE 100 MG CAPSULE. PO (21:24)
[2017-03-23] MEDS: LABETALOL 20 MG/4 ML DISP.SYRIN. IVP (21:25)
[2017-03-23 23:07] LABS: MRSA BY PCR Positive (Negative)
[2017-03-24] MEDS: BENZONATATE 100 MG CAPSULE. PO ×2 (04:16→10:29)
[2017-03-24] MEDS: LABETALOL 20 MG/4 ML DISP.SYRIN. IVP (04:17)
[2017-03-24] MEDS: FUROSEMIDE 40 MG/4 ML VIAL. IVP ×2 (04:18→15:13)
[2017-03-24 08:34] LABS: ANION GAP 9 (6-14); BLOOD UREA NITROGEN 29 mg/dL (8-26); CALCIUM 9.1 mg/dL (8.5-10.1); CARBON DIOXIDE 31 mmol/L (21-32); CHLORIDE 99 mmol/L (98-107); CREATININE 1.5 mg/dL (0.7-1.3); GFR 45.3; GLUCOSE 230 mg/dL (70-99); POTASSIUM 3.2 mmol/L (3.5-5.1); SODIUM 139 mmol/L (136-145)
[2017-03-24] MEDS: IPRATRPIUM/ALBUTEROL 0.5/2.5MG 3 ML NEBU. NEB ×3 (09:00→16:16)
[2017-03-24] MEDS: LACTOBACILLUS RHAMNOSUS GG 1 CAPSULE. PO ×2 (09:11→21:08)
[2017-03-24] MEDS: BENZOCAINE/MENTHOL LOZENGE. PO ×3 (09:11→15:12)
[2017-03-24] MEDS: POTASSIUM CHLORIDE 20 MEQ TABLET.ER. PO (10:29)
[2017-03-24 12:11] LABS: POC GLUCOSE 211 mg/dL (70-99)
[2017-03-24 12:12] LABS: POC GLUCOSE 232 mg/dL (70-99)
[2017-03-24] MEDS: cefTRIAXone IV Push 1 GM VIAL. IVP (15:13)
[2017-03-24] MEDS ORDERED: ALBUTEROL SULFATE 2.5 MG/3 ML NEBU. NEB (16:45)
[2017-03-24] MEDS: DOXYCYCLINE HYCLATE 100 MG TABLET PO (16:58)
[2017-03-24 17:04] LABS: POC GLUCOSE 181 mg/dL (70-99)
[2017-03-24] MEDS: ALBUTEROL SULFATE 2.5 MG/3 ML NEBU. NEB ×2 (19:31→20:00)
[2017-03-24] MEDS: PROMETH/CODEINE 6.25/10MG 5 ML SYRUP. PO (21:11)
[2017-03-25] MEDS: BENZONATATE 100 MG CAPSULE. PO ×3 (00:16→16:37)
[2017-03-25] MEDS: PROMETH/CODEINE 6.25/10MG 5 ML SYRUP. PO ×3 (03:17→16:36)
[2017-03-25] MEDS: ALBUTEROL SULFATE 2.5 MG/3 ML NEBU. NEB ×4 (03:34→19:45)
[2017-03-25] MEDS: BENZOCAINE/MENTHOL LOZENGE. PO ×2 (07:55→16:37)
[2017-03-25] MEDS: DOXYCYCLINE HYCLATE 100 MG TABLET PO ×2 (07:56→20:54)
[2017-03-25] MEDS: LACTOBACILLUS RHAMNOSUS GG 1 CAPSULE. PO ×2 (07:56→20:54)
[2017-03-25] MEDS ORDERED: ACETAMINOPHEN 325 MG TABLET. PO (08:15)
[2017-03-25 08:29] LABS: POC GLUCOSE 200 mg/dL (70-99)
[2017-03-25] MEDS ORDERED: DEXTROSE 50% 25 GM / 50ML DISP.SYRIN. IV (08:45)
[2017-03-25 12:25] LABS: POC GLUCOSE 257 mg/dL (70-99)
[2017-03-25] MEDS: INSULIN ASPART 300 UNITS/3 ML INSULN.PEN SQ ×2 (12:48→18:42)
[2017-03-25] MEDS: cefTRIAXone IV Push 1 GM VIAL. IVP (16:37)
[2017-03-25 16:54] LABS: POC GLUCOSE 258 mg/dL (70-99)
[2017-03-25] MEDS: LABETALOL 20 MG/4 ML DISP.SYRIN. IVP (20:55)
[2017-03-25] MEDS: ONDANSETRON PF 4 MG/2 ML VIAL. IV (22:56)
[2017-03-26] MEDS: PROMETH/CODEINE 6.25/10MG 5 ML SYRUP. PO ×3 (04:07→20:27)
[2017-03-26 05:13] LABS: POC GLUCOSE 235 mg/dL (70-99)
[2017-03-26 07:57] LABS: POC GLUCOSE 189 mg/dL (70-99)
[2017-03-26] MEDS: ALBUTEROL SULFATE 2.5 MG/3 ML NEBU. NEB ×4 (08:19→19:34)
[2017-03-26] MEDS: DOXYCYCLINE HYCLATE 100 MG TABLET PO ×2 (08:57→20:26)
[2017-03-26] MEDS: LACTOBACILLUS RHAMNOSUS GG 1 CAPSULE. PO ×2 (08:57→20:26)
[2017-03-26] MEDS: BENZONATATE 100 MG CAPSULE. PO (08:58)
[2017-03-26] MEDS: LABETALOL 20 MG/4 ML DISP.SYRIN. IVP (09:00)
[2017-03-26] MEDS: INSULIN ASPART 300 UNITS/3 ML INSULN.PEN SQ ×3 (09:01→18:22)
[2017-03-26 11:31] LABS: POC GLUCOSE 284 mg/dL (70-99)
[2017-03-26] MEDS ORDERED: oxyCODONE/APAP 5/325 1 TAB TABLET PO (13:30)
[2017-03-26] MEDS: IBUPROFEN 600 MG TABLET. PO (13:43)
[2017-03-26 14:30] LABS: ADD MAN DIFF? NO
[2017-03-26 14:32] LABS: BASO % 0 % (0-3); EOS % 0 % (0-3); HEMATOCRIT 42.2 % (39.0-53.0); HEMOGLOBIN 13.9 g/dL (13.0-17.5); LYMPH # 0.8 x10^3/uL (1.0-4.8); LYMPH % 7 % (24-48); MEAN CORPUSCULAR HEMOGLOBIN 29 pg (25-35); MEAN CORPUSCULAR HGB CONC 33 g/dL (31-37); MEAN CORPUSCULAR VOLUME 89 fL (79-100); MONO # 1.2 x10^3/uL (0.0-1.1); MONO % 11 % (0-9); NEUT # 8.9 x10^3uL (1.8-7.7); NEUT % 82 % (31-73); PLATELET COUNT 156 x10^3/uL (140-400); RED BLOOD COUNT 4.73 x10^6/uL (4.30-5.70); RED CELL DISTRIBUTION WIDTH 14.3 % (11.5-14.5); WHITE BLOOD COUNT 10.9 x10^3/uL (4.0-11.0)
[2017-03-26 14:55] LABS: ALBUMIN 2.8 g/dL (3.4-5.0); ALBUMIN/GLOBULIN RATIO 0.6 (1.0-1.7); ALK PHOS 81 U/L (46-116); ALT (SGPT) 179 U/L (16-63); ANION GAP 6 (6-14); AST (SGOT) 127 U/L (15-37); BLOOD UREA NITROGEN 23 mg/dL (8-26); BUN/CREATININE RATIO 16 (6-20); CALCIUM 9.2 mg/dL (8.5-10.1); CARBON DIOXIDE 34 mmol/L (21-32); CHLORIDE 97 mmol/L (98-107); CREATININE 1.4 mg/dL (0.7-1.3); GLUCOSE 322 mg/dL (70-99); POTASSIUM 3.2 mmol/L (3.5-5.1); SODIUM 137 mmol/L (136-145); TOTAL BILIRUBIN 0.7 mg/dL (0.2-1.0); TOTAL PROTEIN 7.5 g/dL (6.4-8.2)
[2017-03-26 17:39] LABS: POC GLUCOSE 236 mg/dL (70-99)
[2017-03-26] MEDS: POTASSIUM CHLORIDE 20 MEQ TABLET.ER. PO (18:16)
[2017-03-26 20:25] LABS: POC GLUCOSE 278 mg/dL (70-99)
[2017-03-27] MEDS: LABETALOL 20 MG/4 ML DISP.SYRIN. IVP (03:32)
[2017-03-27 07:59] LABS: POC GLUCOSE 198 mg/dL (70-99)
[2017-03-27] MEDS: ALBUTEROL SULFATE 2.5 MG/3 ML NEBU. NEB ×4 (08:00→19:47)
[2017-03-27 08:35] LABS: ADD MAN DIFF? NO
[2017-03-27 08:39] LABS: BASO % 0 % (0-3); EOS # 0.2 x10^3/uL (0.0-0.7); EOS % 3 % (0-3); HEMATOCRIT 38.1 % (39.0-53.0); HEMOGLOBIN 12.5 g/dL (13.0-17.5); LYMPH % 13 % (24-48); MEAN CORPUSCULAR HEMOGLOBIN 29 pg (25-35); MEAN CORPUSCULAR HGB CONC 33 g/dL (31-37); MEAN CORPUSCULAR VOLUME 89 fL (79-100); MONO # 0.8 x10^3/uL (0.0-1.1); MONO % 10 % (0-9); NEUT # 5.9 x10^3uL (1.8-7.7); NEUT % 74 % (31-73); PLATELET COUNT 142 x10^3/uL (140-400); RED BLOOD COUNT 4.27 x10^6/uL (4.30-5.70)
[2017-03-27 08:54] LABS: ANION GAP 7 (6-14); BLOOD UREA NITROGEN 22 mg/dL (8-26); CALCIUM 9.1 mg/dL (8.5-10.1); CARBON DIOXIDE 32 mmol/L (21-32); CHLORIDE 101 mmol/L (98-107); CREATININE 1.1 mg/dL (0.7-1.3); GFR 64.7; GLUCOSE 223 mg/dL (70-99); POTASSIUM 3.3 mmol/L (3.5-5.1); SODIUM 140 mmol/L (136-145)
[2017-03-27] MEDS: DOXYCYCLINE HYCLATE 100 MG TABLET PO ×2 (09:51→20:29)
[2017-03-27] MEDS: LACTOBACILLUS RHAMNOSUS GG 1 CAPSULE. PO ×2 (09:51→20:30)
[2017-03-27] MEDS: IBUPROFEN 600 MG TABLET. PO (09:51)
[2017-03-27] MEDS: BENZONATATE 100 MG CAPSULE. PO (09:52)
[2017-03-27] MEDS: ONDANSETRON PF 4 MG/2 ML VIAL. IV (09:52)
[2017-03-27] MEDS: BENZOCAINE/MENTHOL LOZENGE. PO (09:52)
[2017-03-27] MEDS: PROMETH/CODEINE 6.25/10MG 5 ML SYRUP. PO ×2 (09:52→20:30)
[2017-03-27] MEDS: INSULIN ASPART 300 UNITS/3 ML INSULN.PEN SQ ×3 (10:15→17:00)
[2017-03-27 11:42] LABS: POC GLUCOSE 207 mg/dL (70-99)
[2017-03-27 17:34] LABS: POC GLUCOSE 173 mg/dL (70-99)
[2017-03-27 20:52] LABS: POC GLUCOSE 199 mg/dL (70-99)
[2017-03-28] MEDS: ALBUTEROL SULFATE 2.5 MG/3 ML NEBU. NEB ×2 (08:13→11:32)
[2017-03-28 08:16] LABS: ANION GAP 6 (6-14); BLOOD UREA NITROGEN 19 mg/dL (8-26); CALCIUM 9.3 mg/dL (8.5-10.1); CARBON DIOXIDE 33 mmol/L (21-32); CHLORIDE 101 mmol/L (98-107); CREATININE 1.1 mg/dL (0.7-1.3); GFR 64.7; GLUCOSE 208 mg/dL (70-99); POTASSIUM 3.4 mmol/L (3.5-5.1); SODIUM 140 mmol/L (136-145)
[2017-03-28 08:21] LABS: HEMATOCRIT 37.4 % (39.0-53.0); HEMOGLOBIN 12.2 g/dL (13.0-17.5); MEAN CORPUSCULAR HEMOGLOBIN 29 pg (25-35); MEAN CORPUSCULAR HGB CONC 33 g/dL (31-37); MEAN CORPUSCULAR VOLUME 89 fL (79-100); PLATELET COUNT 144 x10^3/uL (140-400); RED BLOOD COUNT 4.19 x10^6/uL (4.30-5.70); WHITE BLOOD COUNT 9.2 x10^3/uL (4.0-11.0)
[2017-03-28] MEDS: LACTOBACILLUS RHAMNOSUS GG 1 CAPSULE. PO (09:00)
[2017-03-28] MEDS: DOXYCYCLINE HYCLATE 100 MG TABLET PO (09:00)
[2017-03-28] MEDS: INSULIN ASPART 300 UNITS/3 ML INSULN.PEN SQ ×2 (09:10→13:15)
[2017-03-28 09:26] LABS: POC GLUCOSE 189 mg/dL (70-99)
[2017-03-28 11:30] LABS: POC GLUCOSE 212 mg/dL (70-99)
[2017-03-28] MEDS: CHOLECALCIFEROL (VITAMIN D3) 1,000 UNIT TABLET PO (11:31)
[2017-03-28] MEDS: ASPIRIN ENTERIC COATED 81 MG TABLET.DR. PO (11:32)
[2017-03-28] MEDS: CETIRIZINE HCL 10 MG TABLET. PO (11:32)
[2017-03-28] MEDS: ASCORBIC ACID 500 MG TABLET PO (11:32)
[2017-03-28] MEDS: POTASSIUM CHLORIDE 20 MEQ TABLET.ER. PO (11:32)
[2017-03-28] MEDS: MEMANTINE 10 MG TABLET. PO (11:32)
[2017-03-28] MEDS: FERROUS SULFATE 325 MG TABLET. PO (11:32)
[2017-03-28] MEDS: CARVEDILOL 12.5 MG TABLET. PO (11:33)
[2017-03-28] MEDS: FUROSEMIDE 40 MG TABLET. PO (11:33)
[2017-03-28] MEDS: AMIODARONE HCL 200 MG TABLET. PO (11:33)
[2017-03-28] MEDS: VITAMIN E 200 UNIT CAPSULE. PO (13:11)
[2017-03-28] MEDS ORDERED: DONEPEZIL HCL 10 MG TABLET. PO (21:00)
[2017-03-28] MEDS ORDERED: TAMSULOSIN 0.4 MG CAP.ER.24H. PO (21:00)
== END 2017-03-28 14:45 | DRG 177 ==
LOC: 2 SOUTH 23:15 → ER 19:14
PROC: 5A09357 Assistance with Respiratory Ventilation, Less than 24 Consecutive Hours, Continuous Positive Airway Pressure (ICD-10-PCS; principal; 2017-03-23)
DX: J15.6 Pneumonia due to other Gram-negative bacteria (principal); I21.4 Non-ST elevation (NSTEMI) myocardial infarction; J96.01 Acute respiratory failure with hypoxia; E46 Unspecified protein-calorie malnutrition; I13.0 Hypertensive heart and chronic kidney disease with heart failure and stage 1 through stage 4 chronic kidney disease, or unspecified chronic kidney disease; E11.22 Type 2 diabetes mellitus with diabetic chronic kidney disease; Z68.29 Body mass index [BMI] 29.0-29.9, adult; E78.00 Pure hypercholesterolemia, unspecified; E78.5 Hyperlipidemia, unspecified; F03.90 Unspecified dementia, unspecified severity, without behavioral disturbance, psychotic disturbance, mood disturbance, and anxiety; I25.10 Atherosclerotic heart disease of native coronary artery without angina pectoris; I50.9 Heart failure, unspecified; K21.9 Gastro-esophageal reflux disease without esophagitis; N18.9 Chronic kidney disease, unspecified; Z79.01 Long term (current) use of anticoagulants; Z86.14 Personal history of Methicillin resistant Staphylococcus aureus infection; Z87.891 Personal history of nicotine dependence; Z88.2 Allergy status to sulfonamides; Z95.1 Presence of aortocoronary bypass graft; Z88.5 Allergy status to narcotic agent
CPT/HCPCS: 36415; 71045; 80048; 80053; 81001; 82962; 83605; 83880; 84484; 85025; 85027; 87641; 87804; 87804-59; 93005; 94640; 94660; 94760; 96374; 96375; 97162-GP; 97166-GO; 97530-GP; 99285; 99285-25; J0696; J1815; J1940; J2405; J2930; J3490; J7613; J7620; Q0144

== ENCOUNTER → 2017-05-03 | Outpatient (CLI) | payer MEDICARE, OTHER | END | disposition home or self-care (01) | LOC: KCIC US 10:01 | DX: K76.0 Fatty (change of) liver, not elsewhere classified (principal); I70.0 Atherosclerosis of aorta | CPT/HCPCS: 76700 ==

== ENCOUNTER 2017-07-05 00:38 | Emergency (ER) | payer MEDICARE, OTHER ==
[2017-07-05] MEDS ORDERED: VANCOMYCIN PER PHARMACY MC (00:45)
[2017-07-05] MEDS ORDERED: fentaNYL PF VIAL 100 MCG/2 ML VIAL IV ×3 (00:45)
[2017-07-05] MEDS ORDERED: diphenhydrAMINE 50 MG/ML VIAL IVP (00:45)
[2017-07-05] MEDS ORDERED: MIDAZOLAM 100mg/100ml NS BAG 100 ML IV (00:45)
[2017-07-05] MEDS ORDERED: MORPHINE SULFATE 10 MG/ML VIAL. IV (01:00)
[2017-07-05] MEDS ORDERED: ETOMIDATE 20 MG/10 ML VIAL. IV (01:00)
[2017-07-05] MEDS ORDERED: SUCCINYLCHOLINE 200 MG/10 ML VIAL. IV (01:00)
[2017-07-05] MEDS ORDERED: IV NORMAL SALINE 1000ML BAG 1,000 ML IV (01:00)
[2017-07-05] MEDS ORDERED: PIPERACILLIN/TAZOBACTAM 4.5 GM in IV NORMAL SALINE 100ML 100 ML IV (01:00)
[2017-07-05] MEDS: MORPHINE SULFATE 10 MG/ML VIAL. IV (01:19)
[2017-07-05] MEDS ORDERED: CHLORHEXIDINE 0.12% 15 ML MOUTHWASH. MM (09:00)
== END 2017-07-05 02:29 | disposition home or self-care (01) ==
LOC: ER 00:38
DX: J96.00 Acute respiratory failure, unspecified whether with hypoxia or hypercapnia (principal); E11.9 Type 2 diabetes mellitus without complications; E78.00 Pure hypercholesterolemia, unspecified; I11.0 Hypertensive heart disease with heart failure; I50.9 Heart failure, unspecified; I25.10 Atherosclerotic heart disease of native coronary artery without angina pectoris; I48.91 Unspecified atrial fibrillation; K21.9 Gastro-esophageal reflux disease without esophagitis; Z86.73 Personal history of transient ischemic attack (TIA), and cerebral infarction without residual deficits; Z95.0 Presence of cardiac pacemaker; Z88.2 Allergy status to sulfonamides; Z88.5 Allergy status to narcotic agent; Z91.041 Radiographic dye allergy status
CPT/HCPCS: 36415; 93005; 96374; 99284; J2270